=== PATIENT | female | born 1965 | race Caucasian/White ===

== ENCOUNTER 2016-09-22 08:25 | Inpatient (IN) | payer MEDICARE, MEDICAID ==
[2016-09-22] VITALS (8 sets, daily range): BP systolic 94–114; BP diastolic 59–72
[~2016-09-22] VITALS: Ht 177.8 cm; Wt 49.9 kg
--- NOTE | ~2016-09-22 | PR ---
[place], [place] PROGRESS NOTE [id number] UNIT #: [id number] ROOM: 502 DOCTOR: MARCIA MONTERO MD BIRTHDATE: [birth year] DOS: SUBJECTIVE: She has a bronchoscopy done yesterday with reduction of respiratory symptoms of coughing, shortness breath and wheezing. Denies symptoms of chest pain. Culture of the bronchial washing of the patient remains pending at this time. Denies symptoms of abdominal pain. OBJECTIVE: VITAL SIGNS: Normal temperature, respiratory rate 20, heart rate 83, blood pressure 124/80. Pulse oxygen saturation of the patient recorded as 92% on 3 L nasal cannula. HEENT: No acute change. NECK: Supple. CARDIOVASCULAR: S1, S2 audible. LUNGS: The patient was noted without any crackles. Mild expiratory wheezing improvement noted from yesterday. ABDOMEN: Soft, nontender. LABORATORY DATA: CBC today: WBC count 3.4, remaining CBC of patient essentially was noted as normal. Gram stain of the bronchial washing, moderate white blood cells, moderate epithelial cells, moderate gram-positive cocci in pairs and chains. IMPRESSION: 1. Severe acute tracheobronchitis. The patient with acute exacerbation of chronic obstructive pulmonary disease, acute tracheobronchitis with improvement occurred for this patient post-bronchoscopy patient. 2. History of common variable hypergammaglobulinemia. 3. Leukopenia noted, most likely medication induced or other etiologies. PLAN OF TREATMENT: Monitoring culture results. Continue the previous therapy, plan and management as in progress. Usual care. Supportive care. Other therapy, plan of care. Usual medical management. Continue to improve the protein calorie malnutrition with use of the nutritional supplements for the patient administration. [place], [place] PROGRESS NOTE NAME: SEA SCHUSTER UNIT #: [id number] ROOM: 502 DOCTOR: MARCIA MONTERO MD BIRTHDATE: [birth year] MARCIA JONAS MD CM:PNTRANS [id number] MARCIA MONTES MD 09/25/16 151 interface
--- NOTE | ~2016-09-22 | PROC NOTE ---
[place], [place] PROCEDURE NOTE [id number] UNIT #: [id number] ROOM: 502 DOCTOR: PRITESH MONTES MD,MARCIA BIRTHDATE: [birth year] DOS: 09/21/2016 PROCEDURE: Fiberoptic bronchoscopy. PREOPERATIVE DIAGNOSES: Persistent cough and wheezing. POSTOPERATIVE DIAGNOSES: Severe impaction of the mucus plug for the patient noted in endobronchial tree bilaterally with finding of acute tracheobronchitis for this patient as well. PROCEDURE DESCRIPTION: Informed consent was obtained from the patient. She was brought to the OR and placed in the supine position. Conscious sedation administered by the Anesthesia Department. After achieving appropriate sedation, airway introduced into the mouth. Bronchoscope advanced through the airway into laryngeal area. Epiglottis and vocal cords were seen. Bronchoscope advanced to the vocal cord and tracheal lumen. Tracheal lumen was noted with moderate thick mucus secretions and small purulent secretions suctioned out to the andrew level. Right upper, right lower, right middle, left upper, lingular and lower lobe bronchi were all examined. Moderate thick mucus impaction noted in endobronchial tree bilaterally and suctioned out with the help of normal saline wash. All the bronchial secretion was collected and sent for the cultures. Procedure was tolerated by the patient without any difficulty. Postoperative findings were discussed with the patient's family members after completion of the procedure. MARCIA JONAS MD CM:PROCNOTE:PROCEDURE NOTE [id number] MARCIA MONTES MD
--- NOTE | ~2016-09-22 | CON ---
[place], [place] REPORT OF CONSULTATION NAME: SEA SCHUSTER [facility] #: [id number] UNIT #: [id number] ROOM: 502 DOCTOR: MARCIA MONTERO MD BIRTHDATE: [birth year] DOS: 09/23/2016 PULMONARY CONSULTATION, EVALUATION AND MANAGEMENT CONSULTATION REQUESTED BY: Hospitalist services. REASON FOR CONSULTATION: For assessment of ongoing acute symptoms and exacerbation of COPD. HISTORY OF PRESENT ILLNESS: A 51-year-old white female who has been known to me with past history of severe centrilobular emphysema, common variable hypogammaglobulinemia presented to the hospital as she started having symptoms of nausea, vomiting with night sweats and fever. She was also noted symptoms of coughing, which has been noted worsened since Wednesday as well. The coughing has been noted moderate to severe without any sputum expectoration. The patient does have symptoms of shortness breath, which occurs with exertion with intermittent wheezing and tightness in the chest. There were no symptoms of chest pain. REVIEW OF SYSTEMS: CONSTITUTIONAL: She does complain of fatigue and tiredness, low grade fever. EYES: Denies any burning, redness, or tenderness. EARS, NOSE, THROAT: Sore throat, hoarseness, otalgia, postnasal drainage. CARDIOVASCULAR SYSTEM: Denies anginal pain, edema or pain of the lower extremities. GASTROINTESTINAL: Nausea, vomiting, which I noted on admission, on the has been resolved at this time. Denies symptoms of abdominal pain, hematemesis, melena, or hematochezia. GENITOURINARY: Denies dysuria, suprapubic pain, hematuria. MUSCULOSKELETAL: Denies acute joint pain, redness, or tenderness. SKIN: No lesions or rashes. CENTRAL NERVOUS SYSTEM: Denies dizziness, headache, diplopia. Remaining systems were reviewed with the patient, they were noted all negative. PAST MEDICAL HISTORY: 1. Noted with history of severe centrilobular emphysema for this patient with FEV1 was known as 90%-21% for this patient with the last testing done in May 2016. 2. History of common variable hypogammaglobulinemia on intravenous gammaglobulin supplements. 3. Gastroesophageal reflux. 4. Degenerative arthritis of the lower back. 5. Allergic rhinitis. 6. Poor peripheral venous access with MediPort in place. PAST SURGICAL HISTORY: 1. Tubal ligation. 2. D and C. 3. Lumbar laminectomy. [place], [place] REPORT OF CONSULTATION NAME: SEA SCHUSTER [facility] #: [id number] UNIT #: [id number] ROOM: [facility] DOCTOR: MARCIA MONTERO MD BIRTHDATE: [birth year] 4. Left rotator cuff repair recently for patient was performed. SOCIAL HISTORY: She is , has one daughter. Denies history of alcohol use or illicit drug use. Tobacco use noted at the age of [age] years old and stated that she has not been smoking any cigarettes and smoked about half a pack of cigarettes per day since 2011. FAMILY HISTORY: The patient was known with both parents have been of unknown ages. MEDICATIONS: Current administered medications noted use of Lovenox for DVT prophylaxis, Protonix, IV Solu-Medrol 60 mg b.i.d., DuoNeb every 4 hours, Levaquin, morphine sulfate and IV Levaquin. ALLERGIES: The drug allergy history the patient was reported as no known drug allergies. PHYSICAL EXAMINATION: GENERAL: A 51-year-old white female who has been noted excessive coughing at the time of this assessment. Height of 5 feet 9 inches, weight of 110 pounds without any distress. BMI 15.7. VITAL SIGNS: The temperature is noted at 100.6 degree Fahrenheit for the patient on admission, currently noted afebrile, respiratory rate of 18-20, heart rate of 88-76, blood pressure 96/62-122/62. Pulse oxygen saturation for the patient recorded on room air 86% with 2 liters nasal cannula 96% saturation. HEENT: Shows head was atraumatic. Eyes nonicterus. NECK: Supple. CARDIOVASCULAR SYSTEM: S1, S2 audible. LUNGS: The patient noted diffuse expiratory wheezing. The patient without any abnormal crackles. ABDOMEN: Soft, nontender and flat. EXTREMITIES: The patient was noted without any edema, clubbing or cyanosis. CENTRAL NERVOUS SYSTEM: Cranial nerves 2-12 intact. No focal deficit. MUSCULOSKELETAL: Noted without any acute deformities. SKIN: Showed no lesions or rashes. LABORATORY DATA: CBC of the patient on 09/22/2016 was noted with normal hemoglobin, hematocrit and platelet count mildly decreased 129,000. Lactic acid was normal. PT/PTT patient on admission 09/22/2016 was normal. CMP of the patient on 09/22/2016 was noted as normal. CMP for this patient except AST mildly elevated at 42. CPK-MB and troponin of the patient on yesterday and this morning total of 3 sets were normal. CBC of the patient on 09/23/2016 WBC count 3.2, hemoglobin and hematocrit was normal, platelet count was still noted decreased mild worsening with 117,000 today. Urine culture showed no bacterial growth from the patient from admission. The chest x-ray of the patient that was done shows MediPort in place in the right chest with lung was noted hyperinflated changes of COPD, emphysema without any acute pulmonary infiltration visible. IMPRESSION: [place], [place] REPORT OF CONSULTATION NAME: SEA SCHUSTER UNIT #: [id number] ROOM: [facility] DOCTOR: MARCIA MONTERO MD BIRTHDATE: [birth year] 1. The patient who has been currently admitted to the hospital noted progressive acute respiratory symptoms with the gastrointestinal tract for this patient later on noted with acute exacerbation of chronic obstructive pulmonary disease as well at the same time. 2. Severe nonproductive cough. The patient's inability to expectorate sputum with thick mucus production and impaction of the mucous plugs was expected. 3. History of common variable hypogammaglobulinemia known previously. 4. Mild thrombocytopenia, etiology unclear, needs to be closely monitored. 5. Mild elevation of AST was also noted for this patient as well. 6. Low BMI for this patient as well. 7. History of lower back pain as well. PLAN OF TREATMENT: The patient has been started symptomatic management, severe cough with Robitussin-AC to improve the cough. The bronchoscopy was assessed for the patient was planned to be done in the morning. The risks and benefits of procedure have been discussed. Monitor respiratory status of the patient at this time. I ordered prealbumin level will be done in the morning to assess the nutritional status. Other supportive therapy, plan of management. Usual care. Other supportive plan of management as well. Usual medical treatments. Further treatment changes will be done based on the progression of the illness. Thank you for allowing me to participate in the care of this patient. MARCIA JONAS MD CM:CONSTR:REPORT OF CONSULTATION 1243 09/24/16 0032 interface
--- NOTE | ~2016-09-22 | PR ---
[place], [place] PROGRESS NOTE [id number] UNIT #: [id number] ROOM: 502 DOCTOR: PRITESH MONTES MD,MARCIA BIRTHDATE: [birth year] DOS: 09/24/2016 PULMONARY PROGRESS NOTE SUBJECTIVE: The patient seen and examined on 09/24/2016. She is n.p.o. past midnight and bronchoscopy planned for today. The coughing for the patient was still noted at this time and not improving. She does have symptoms of chest tightness and wheezing. She was continued on corticosteroids. OBJECTIVE: VITAL SIGNS: Showed normal temperature, respiratory rate 22, heart rate of 53, blood pressure 111/81. The pulse oxygen saturation for the patient recorded as 92% on room air. HEENT: Examination shows head was atraumatic. Eyes nonicterus. NECK: Supple. CARDIOVASCULAR SYSTEM: S1, S2 audible. LUNGS: Showed persistent reduced breath sounds with expiratory wheezing, no crackles. ABDOMEN: Soft, nontender. LABORATORY DATA: Prealbumin level noted as 18. IMPRESSION: 1. The patient with ongoing acute severe exacerbation of chronic obstructive pulmonary disease, acute tracheobronchitis on antibiotics, bronchodilators, corticosteroids without much improvement, for bronchoscopy. 2. Moderate protein-calorie malnutritional status. PLAN OF TREATMENT: No changes in the plan and management at this time, proceed with the bronchoscopy. Any modification in treatment if necessary will be ordered after the bronchoscopy. Usual care. MARCIA JONAS MD CM:PNTRANS [id number] MARCIA MONTES MD 09/24/16 1340 interface
[~2016-09-22 08:25] MED LIST: ACCUNEB 0.1.25 MG/1 INH; ADVAIR 500/501 E1 INH; BACTRIM DS 8001 TA1 PO; CEPHALEXIN500 M1 PO; CIPRO PO; CIPRO500 MG PO; CIPROFLOXACIN500 MG PO; CORTIZONE; DALI500T PO; DOXYCYCLINE100 M3 PO; GABAPENTIN600 MG PO; GUAFENESIN400 MG PO; HYDROCODONE BIT1 T11 PO; IMMUNE GLOBULIN 100 MG/ML IV; IMMUNE GLOBULIN IJ; KEFLEX500 MG PO; KENALOG0.1% TP; LIDEX 0.05% GEL60 GM PO; METHADONE10 MG PO; NEURONTIN100 MG PO; NEURONTIN600 MG PO; OMEPRAZOLE20 MG PO; PERCOCET 325 MG1 TA7 PO; PERCOCET 650 MG1 TA1 PO; PREDNICOT20 MG PO; PREDNISONE5 MG; PREDNISONE5 MG PO; PRILOSEC20 M2 PO; PROAIR HFA0.09 MG/AC; PROAIR HFA0.09 MG/AC IH; ROBITUSSIN AC 10 MG/ PO; SINGULAIR10 MG PO; SPIRIVA 5 CAPS18 MCG INH; SPIRIVA18 MCG; SPIRIVA18 MCG PO; SYMBICORT1 AE1 IH; TRAMADOL HCL50 MG PO; ULTRAM50 MG PO; VENTOLIN H0.09 MG/AC INH; VIBRA-TAB100 M1 PO; VISTARIL25 MG PO; Vicodin 5/500 505 MG PO; ZOFRAN ODT4 MG SL
[2016-09-22 09:16] LABS: BASO % 0.2 % (0.0-1.0); HEMATOCRIT 45.7 % (37.0-47.0); LYMPH # 0.6 10*3/uL (1.3-4.4); LYMPH % 11.8 % (27.0-41.0); MEAN CELL VOLUME 89.8 fl (81.0-99.0); MEAN CORPUSCULAR HGB 29.5 pg (27.0-31.0); MEAN CORPUSCULAR HGB CONC 32.8 g/dl (33.0-37.0); MEAN PLATELET VOLUME 10.7 fl (9.6-12.3); MONO # 0.5 10*3/uL (0.1-1.0); MONO % 8.6 % (3.0-9.0); NEUT # 4.2 10*3/uL (2.3-7.9); NEUT % 79.2 % (47.0-73.0); PLATELET COUNT AUTOMATED 129 10*3/uL (130-400); RED BLOOD COUNT 5.09 10*6/uL (4.10-5.10); RED CELL DISTRI WIDTH 14.1 % (0-14.5); WHITE BLOOD COUNT 5.3 10*3/uL (4.8-10.8)
[2016-09-22 09:32] LABS: ALBUMIN 3.8 gm/dl (3.1-4.5); ALKALINE PHOSPHATASE 76 U/L (45-117); BILIRUBIN, TOTAL 0.2 mg/dl (0.2-1.0); BUN 11 mg/dl (7-24); C-REACTIVE PROTEIN 0.73 MG/DL (0-0.3); CARBON DIOXIDE 26 mmol/L (21-32); CHLORIDE 101 mmol/L (98-107); CKMB 1.3 ng/ml (0.5-3.6); CPK 145 U/L (26-192); EST GLOM FILT AFRICAN AMERICAN > 60 ml/min; GLUCOSE 102 mg/dL (65-99); POTASSIUM 4.4 mmol/L (3.5-5.1); SGOT/AST 42 IU/L (3-35); SGPT/ALT 40 U/L (12-78); SODIUM 139 mmol/L (136-145); TOTAL PROTEIN 6.9 gm/dL (6.4-8.2)
[2016-09-22 09:33] LABS: TROPONIN I < 0.015 ng/ml (<0.045)
[2016-09-22 09:36] LABS: BILIRUBIN 1+ (NEGATIVE); BLOOD 1+ (NEGATIVE); CLARITY SL CLOUDY (CLEAR); COLOR YELLOW (YELLOW); GLUCOSE NEGATIVE (NEGATIVE); KETONE NEGATIVE (NEGATIVE); LEUKO ESTERASE 1+ (NEGATIVE); NITRITE NEGATIVE (NEGATIVE); PH 5.5 (5.0-9.0); PROTEIN 2+ (NEGATIVE); SPECIFIC GRAVITY >= 1.030 (1.005-1.030)
[2016-09-22 09:44] LABS: BACTERIA TRACE
[2016-09-22 09:45] LABS: URINE REFLEX COMMENT YES (NO)
[2016-09-22 18:04] LABS: CPK 138 U/L (26-192)
[2016-09-22 18:09] LABS: CKMB 1.5 ng/ml (0.5-3.6)
[2016-09-22 18:14] LABS: TROPONIN I < 0.015 ng/ml (<0.045)
[2016-09-23] VITALS: BP 97/62
[2016-09-23 00:29] LABS: CKMB 1.6 ng/ml (0.5-3.6); CPK 114 U/L (26-192); TROPONIN I < 0.015 ng/ml (<0.045)
[2016-09-23 06:05] LABS: CKMB 1.9 ng/ml (0.5-3.6); CPK 100 U/L (26-192)
[2016-09-23 06:11] LABS: TROPONIN I < 0.015 ng/ml (<0.045)
[2016-09-23 06:30] LABS: BUN 11 mg/dl (7-24); CARBON DIOXIDE 25 mmol/L (21-32); CHLORIDE 110 mmol/L (98-107); CHOLESTEROL 113 mg/dL (<200); EST GLOM FILT AFRICAN AMERICAN > 60 ml/min; GLUCOSE 93 mg/dL (65-99); MAGNESIUM 1.9 mg/dL (1.5-2.1); PHOSPHOROUS 3.5 mg/dL (2.5-4.9); SODIUM 143 mmol/L (136-145); TRIGLYCERIDES 105 mg/dl (<150); VLDL CHOLESTEROL 21 mg/dL (6-40)
[2016-09-23 06:32] LABS: HEMOGLOBIN A1c 5.5 % (4.8-5.6)
[2016-09-23 06:41] LABS: FREE T4 0.79 ng/dl (0.76-1.46); HDL CHOLESTEROL 43 mg/dl (40-60); LDL CHOLESTEROL 49 mg/dL (9-159); THYROID STIM HORMONE (HS) 0.652 uIU/ml (0.358-4.75)
[2016-09-23 06:58] LABS: BASO % 0.3 % (0.0-1.0); LYMPH # 1.1 10*3/uL (1.3-4.4); LYMPH % 33.9 % (27.0-41.0); MEAN CELL VOLUME 90.3 fl (81.0-99.0); MEAN CORPUSCULAR HGB 29.4 pg (27.0-31.0); MEAN CORPUSCULAR HGB CONC 32.5 g/dl (33.0-37.0); MEAN PLATELET VOLUME 10.9 fl (9.6-12.3); MONO # 0.3 10*3/uL (0.1-1.0); MONO % 10.1 % (3.0-9.0); NEUT # 1.8 10*3/uL (2.3-7.9); NEUT % 55.4 % (47.0-73.0); PLATELET COUNT AUTOMATED 117 10*3/uL (130-400); RED BLOOD COUNT 4.22 10*6/uL (4.10-5.10); RED CELL DISTRI WIDTH 14.1 % (0-14.5); WHITE BLOOD COUNT 3.2 10*3/uL (4.8-10.8)
[2016-09-23 07:01] LABS: HEMATOCRIT 38.1 % (37.0-47.0); HEMOGLOBIN 12.4 g/dl (12.0-16.0)
[2016-09-23 07:15] LABS: VITAMIN D, 25-HYDROXY 9.1 ng/mL (30-100)
[2016-09-23 07:16] LABS: FOLIC ACID 11.82 ng/mL (>5.38)
[2016-09-23 08:00] VITALS: BP 122/82
[2016-09-23 12:00] VITALS: BP 118/82
[2016-09-23 16:00] VITALS: BP 114/79
[2016-09-23 20:00] VITALS: BP 117/80
[2016-09-24] VITALS (10 sets, daily range): BP systolic 109–141; BP diastolic 65–94
[2016-09-25] VITALS: BP 112/65
[2016-09-25 06:32] LABS: HEMATOCRIT 38.7 % (37.0-47.0); HEMOGLOBIN 12.5 g/dl (12.0-16.0); MEAN CELL VOLUME 88.4 fl (81.0-99.0); MEAN CORPUSCULAR HGB 28.5 pg (27.0-31.0); MEAN CORPUSCULAR HGB CONC 32.3 g/dl (33.0-37.0); MEAN PLATELET VOLUME 11.2 fl (9.6-12.3); PLATELET COUNT AUTOMATED 136 10*3/uL (130-400); RED BLOOD COUNT 4.38 10*6/uL (4.10-5.10); RED CELL DISTRI WIDTH 14.2 % (0-14.5); WHITE BLOOD COUNT 2.4 10*3/uL (4.8-10.8)
[2016-09-25 07:11] LABS: LYMPHOCYTE # 0.4 10*3/uL (1.3-4.4); NEUTROPHIL # 1.9 10*3/uL (2.3-7.9); NEUTROPHILS 81 % (47-73); TOTAL CELLS COUNTED 100 #CELLS
[2016-09-25 07:12] LABS: PLATELET SUFFICIENCY NORMAL (NORMAL)
[2016-09-25 08:00] VITALS: BP 124/80
[2016-09-25 12:00] VITALS: BP 127/84
[2016-09-25] MEDS ORDERED: VITAMIN D5000 I3 PO (13:39)
[2016-09-25] MEDS ORDERED: B12,B-12,B 12500 MC1 PO (13:39)
[2016-09-25] MEDS ORDERED: LEVOFLOXACIN500 MG PO (14:01)
[2016-09-25] MEDS ORDERED: PREDNISONE10 MG PO (14:01)
[2016-09-25 14:07] LABS: ACID FAST SPEC PROCESSING Concentration (.)
== END 2016-09-25 14:20 | disposition home or self-care (01) | DRG 871 ==
LOC: ED 08:25 → EDHOLD 10:43 → 5E 10:43
PROVIDERS: Emergency Medicine; Internal Medicine; Internal Medicine Critical Care Medicine
PROC: 0BC98ZZ Extirpation of Matter from Lingula Bronchus, Via Natural or Artificial Opening Endoscopic (ICD-10-PCS; principal; 2016-09-24)
PROC: 0BC48ZZ Extirpation of Matter from Right Upper Lobe Bronchus, Via Natural or Artificial Opening Endoscopic (ICD-10-PCS; principal; 2016-09-24)
PROC: 0BC58ZZ Extirpation of Matter from Right Middle Lobe Bronchus, Via Natural or Artificial Opening Endoscopic (ICD-10-PCS; principal; 2016-09-24)
PROC: 0BC68ZZ Extirpation of Matter from Right Lower Lobe Bronchus, Via Natural or Artificial Opening Endoscopic (ICD-10-PCS; principal; 2016-09-24)
DX: A41.9 Sepsis, unspecified organism (principal); J18.9 Pneumonia, unspecified organism; J96.01 Acute respiratory failure with hypoxia; D69.6 Thrombocytopenia, unspecified; E44.0 Moderate protein-calorie malnutrition; J44.0 Chronic obstructive pulmonary disease with (acute) lower respiratory infection; J44.1 Chronic obstructive pulmonary disease with (acute) exacerbation; Z68.1 Body mass index [BMI] 19.9 or less, adult; F17.210 Nicotine dependence, cigarettes, uncomplicated; D72.819 Decreased white blood cell count, unspecified; E55.9 Vitamin D deficiency, unspecified; E53.8 Deficiency of other specified B group vitamins; K21.9 Gastro-esophageal reflux disease without esophagitis; J30.9 Allergic rhinitis, unspecified; Z90.710 Acquired absence of both cervix and uterus; Z82.49 Family history of ischemic heart disease and other diseases of the circulatory system; Z79.1 Long term (current) use of non-steroidal anti-inflammatories (NSAID); Z79.899 Other long term (current) drug therapy; Z98.51 Tubal ligation status; J20.9 Acute bronchitis, unspecified

== ENCOUNTER → 2016-11-17 | Outpatient (CLI) | payer MEDICARE, MEDICAID ==
[~2016-11-17] MED LIST changes: +B12,B-12,B 12500 MC1 PO; +LEVOFLOXACIN500 MG PO; +PREDNISONE10 MG PO; +VITAMIN D5000 I3 PO
== END | disposition home or self-care (01) ==
LOC: US 09:43
DX: R10.33 Periumbilical pain (principal); R63.4 Abnormal weight loss; Z98.890 Other specified postprocedural states

== ENCOUNTER → 2017-01-29 | Day surgery (SDC) | payer MEDICARE, MEDICAID ==
[~2017-01-29] VITALS: Ht 177.8 cm; Wt 49.9 kg
--- NOTE | ~2017-01-29 | O ---
[place], [place] OPERATIVE NOTE NAME: SEA SCHUSTER UNIT #: [id number] ROOM: DOCTOR: JOSEFA HICKMAN MD BIRTHDATE: [birth year] DOS: HISTORY OF PRESENT ILLNESS: The patient is a 51-year-old who presented with solid food dysphagia which is mostly limited to upper esophagus. ALLERGIES: To no known medication. FAMILY HISTORY: Noncontributory. PAST SURGICAL HISTORY: Back, elbow, neck, shoulder and hysterectomy. PAST MEDICAL HISTORY: Unremarkable. SOCIAL HISTORY: Smoker and social alcohol consumer. PROCEDURE: Today's procedure part of investigation is panendoscopy plus biopsy plus esophageal dilation by balloon. PREMEDICATION: Versed and Diprivan. SCOPE: Olympus forward-viewing gastroscope Q10 video. REPORT: After putting the patient in the left lateral position and after application of lubricant to the scope, the scope was introduced. Thereafter, under direct visualization, I advanced through the length of esophagus without difficulty. Upper esophageal stricture obviously was identified. It was difficult to negotiate the scope into the patient and to intubate her for endoscopic purpose. However, this was achieved and gastric pouch was entered after passing through a moderate sized hiatal hernia, gastritis seen. Antrum was biopsied. Duodenal bulb, second and third part was within normal limits. Balloon size 20 was introduced into gastric pouch, inflated to size 20 and orally gradually and meticulously extracted. The balloon is resisted in the upper esophagus, which is segment of the stricture. This, however, overcame and the patient extubated, tolerated procedure well. Afterwards, the patient was re-intubated with the scope in the esophagus and the result of mucosal fracture in the upper esophagus documented, minimal blood of less than 3 mL washed away with ice water. There was no active bleeding. The patient extubated, tolerated procedure well. IMPRESSION: Upper esophageal stricture, status post balloon dilation to size 20, hiatal hernia, gastritis. PLAN AND DISCUSSION: Omeprazole 20 mg 1 a day for 1 month. The patient advised to abstain from smoking, alcohol, aspirin and aspirin products and arthritis medicines and clinical reassessment. [place], [place] OPERATIVE NOTE NAME: SEA SCHUSTER UNIT #: [id number] ROOM: DOCTOR: JOSEFA HICKMAN MD BIRTHDATE: [birth year] JOSEFA HICKMAN MD CM:OPRECORD:OPERATIVE NOTE 1430 [id number] ELBA HICKMAN MD 01/29/17 1607 interface
[2017-01-29 12:15] VITALS: BP 133/85
[2017-01-29 14:20] VITALS: BP 120/90
[2017-01-29 14:35] VITALS: BP 115/92
[2017-01-29 14:50] VITALS: BP 121/91
== END | disposition home or self-care (01) ==
LOC: SDC 01-27 08:00
DX: K22.2 Esophageal obstruction (principal); K29.50 Unspecified chronic gastritis without bleeding; K44.9 Diaphragmatic hernia without obstruction or gangrene; F17.210 Nicotine dependence, cigarettes, uncomplicated; K21.9 Gastro-esophageal reflux disease without esophagitis; J44.9 Chronic obstructive pulmonary disease, unspecified; D80.1 Nonfamilial hypogammaglobulinemia; M19.90 Unspecified osteoarthritis, unspecified site; Z98.51 Tubal ligation status; Z82.49 Family history of ischemic heart disease and other diseases of the circulatory system; Z83.3 Family history of diabetes mellitus; Z90.710 Acquired absence of both cervix and uterus; Z98.890 Other specified postprocedural states; Z82.5 Family history of asthma and other chronic lower respiratory diseases

== ENCOUNTER → 2017-03-16 | Outpatient (CLI) | payer MEDICARE, MEDICAID ==
[2017-03-18 00:04] LABS: IGG SUBCLASS 1 281 mg/dL (248-810); IGG SUBCLASS 2 173 mg/dL (130-555); IGG SUBCLASS 3 96 mg/dL (15-102); IGG SUBCLASS 4 <1 mg/dL (2-96)
== END | disposition home or self-care (01) ==
LOC: LAB 12:24
PROVIDERS: Internal Medicine Critical Care Medicine
DX: J84.9 Interstitial pulmonary disease, unspecified (principal)

== ENCOUNTER → 2017-03-26 | Outpatient (CLI) | payer MEDICARE, MEDICAID ==
[2017-03-26 11:45] LABS: BUN 6 mg/dl (7-24)
== END | disposition home or self-care (01) ==
LOC: LAB 11:16
PROVIDERS: Internal Medicine Gastroenterology
DX: J44.9 Chronic obstructive pulmonary disease, unspecified (principal); R10.9 Unspecified abdominal pain

== ENCOUNTER → 2017-03-30 | Outpatient (CLI) | payer MEDICARE, MEDICAID | END | disposition home or self-care (01) | LOC: CT 00:58 | DX: K76.0 Fatty (change of) liver, not elsewhere classified (principal) ==

== ENCOUNTER → 2017-03-31 | Day surgery (SDC) | payer MEDICARE, MEDICAID ==
[~2017-03-31] VITALS: Ht 177.8 cm; Wt 46.7 kg
--- NOTE | ~2017-03-31 | PROC NOTE ---
[place], [place] PROCEDURE NOTE NAME: SEA SCHUSTER UNIT #: [id number] ROOM: DOCTOR: PRITESH MONTES MD,MARCIA BIRTHDATE: [birth year] DOS: 03/31/2017 BRONCHOSCOPY PREOPERATIVE DIAGNOSIS: Severe nonresolving cough. POSTOPERATIVE DIAGNOSES: Severe nonresolving cough with mucus impaction and tracheobronchitis. PROCEDURE DESCRIPTION: Informed consent obtained. The patient brought to the OR and placed in supine position. Conscious sedation administered by the Anesthesia Department. After achieving appropriate sedation, airway introduced into the mouth. Bronchoscope advanced into the airway into laryngeal area. Epiglottis and vocal cords were seen clearly. Vocal cords were moving symmetric ____ noted yellowish in color. The bronchoscope advanced to the vocal cord and tracheal lumen shows [id number] amount of thick mucoid secretions, suctioned out to the andrew level. The patient noted with [id number] impaction of the mucus, quite thick, in right upper, right middle, right lower, left upper, lingula, and lower lobe bronchi. All secretions suctioned out with the help of normal saline wash and sent for culture. Procedure well tolerated by the patient without any difficulty. Postoperative findings were discussed with the patient, I explained in detail. No change in treatment will be necessary. MARCIA JONAS MD CM:PROCNOTE:PROCEDURE NOTE [id number] MARCIA MONTES MD
[2017-03-31 08:20] VITALS: BP 128/87
[2017-03-31 09:15] VITALS: BP 107/83
[2017-03-31 09:30] VITALS: BP 118/77
[2017-03-31 09:45] VITALS: BP 119/66
[2017-04-01 16:11] LABS: ACID FAST SMEAR Negative (.); ACID FAST SPEC PROCESSING Concentration (.)
== END | disposition home or self-care (01) ==
LOC: SDC 03-30 08:45
PROVIDERS: Internal Medicine Critical Care Medicine
DX: J40 Bronchitis, not specified as acute or chronic (principal); J44.9 Chronic obstructive pulmonary disease, unspecified; K21.9 Gastro-esophageal reflux disease without esophagitis; M19.90 Unspecified osteoarthritis, unspecified site; Z98.890 Other specified postprocedural states; Z87.891 Personal history of nicotine dependence; Z79.899 Other long term (current) drug therapy; Z98.51 Tubal ligation status; Z90.710 Acquired absence of both cervix and uterus

== ENCOUNTER 2017-04-19 11:29 | Emergency (ER) | payer MEDICARE, MEDICAID ==
[~2017-04-19] VITALS: Ht 175.2 cm; Wt 46.7 kg
[~2017-04-19 11:29] MED LIST changes: +AMOXICILLIN500 M2 PO
[2017-04-19] MEDS ORDERED: NORCO 5-325 TA1 EACH PO (14:16)
== END 2017-04-19 14:17 | disposition home or self-care (01) ==
LOC: ED 11:29
DX: S22.42XA Multiple fractures of ribs, left side, initial encounter for closed fracture (principal); S90.32XA Contusion of left foot, initial encounter; S50.312A Abrasion of left elbow, initial encounter; F17.200 Nicotine dependence, unspecified, uncomplicated; Z98.890 Other specified postprocedural states; Z90.710 Acquired absence of both cervix and uterus; Z98.51 Tubal ligation status; Z79.899 Other long term (current) drug therapy; W17.2XXA Fall into hole, initial encounter; Y93.89 Activity, other specified; Y92.89 Other specified places as the place of occurrence of the external cause; Y99.9 Unspecified external cause status

== ENCOUNTER → 2017-05-04 | Outpatient (CLI) | payer MEDICARE, MEDICAID ==
[~2017-05-04] MED LIST changes: +NORCO 5-325 TA1 EACH PO
== END | disposition home or self-care (01) ==
LOC: MAMMO 15:53
DX: Z12.31 Encounter for screening mammogram for malignant neoplasm of breast (principal)

== ENCOUNTER 2017-12-15 19:08 | Inpatient (IN) | payer MEDICARE, MEDICAID ==
[~2017-12-15] VITALS: Ht 175.2 cm; Wt 46.8 kg
--- NOTE | ~2017-12-15 | PR ---
[place], [place] PROGRESS NOTE NAME: SEA SCHUSTER [facility] #: [id number] UNIT #: [id number] ROOM: 415 DOCTOR: PRITESH MONTES MD,MARCIA BIRTHDATE: [birth year] DOS: 12/17/2017 SUBJECTIVE: The patient noted comfortable at this time, resting in the bed, stated that she has been ordered the CT scan of the chest to be done today. The coughing has been noted decreased for the patient after the bronchoscopy. The resolution noted incomplete. The patient has symptoms of hemoptysis. The wheezing and shortness breath was also noted somewhat decreased. She denies symptoms of nausea, vomiting, diarrhea, abdominal pain. Denies symptoms of hematemesis, melena or dysphagia. Denies symptoms of dizziness, headache, diplopia. Remaining systems were reviewed. They were noted all negative. OBJECTIVE: VITAL SIGNS: Normal temperature, respiratory rate 20, heart rate 76, blood pressure 120/62. The pulse oxygen saturation noted on room air 97% saturation. HEENT: Head was atraumatic. Eyes nonicterus. NECK: Supple. Oral mucosa moist. CARDIOVASCULAR: S1, S2 audible without any added sounds. LUNGS: Noted with moderate reduction in breath sounds with mild to moderate expiratory wheezing, decreased at bases. ABDOMEN: Flat, soft, nontender. Bowel sounds present. EXTREMITIES: Without acute edema. MUSCULOSKELETAL: Without any acute deformities. SKIN: No abnormal lesions or rashes. LABORATORY DATA: The patient's blood culture 12/15/2017 showed no bacterial growth. The Gram stain of the bronchial washing of the patient of 12/16/2017, many white blood cells without any organisms seen. Culture of the bronchial washing noted light growth of gram-negative bacilli. Further identification and sensitivity ____ was pending at this time. Blood culture of the patient was noted without any bacterial growth on 12/15/2017. CBC of this morning: WBC count normal. Remaining CBC normal. CMP this morning, BUN normal, creatinine was normal, glucose 129. IMPRESSION: 1. The patient who has been noted with severe acute bronchitis with gram-negative species of the patient at this time, pending identification and sensitivities. 2. History of common variable hypogammaglobulinemia, failed outpatient treatment. 3. Acute exacerbation of chronic obstructive pulmonary disease. CT scan of the chest was completed for the patient, later on, that was reviewed for the patient noted without any abnormalities except known chronic emphysema changes. There were no abnormal pulmonary nodules. PLAN OF MANAGEMENT: Maximize the current medical management. Continue corticosteroids current dose, bronchodilators, oxygen supplementation and the antibiotics. The decision about discharge for the patient to be made for tomorrow after the culture results will be clearly known since the patient was noted with not a good response to the oral antibiotics, might require intravenous antibiotic therapy. [place], [place] PROGRESS NOTE NAME: LANDENSEA Micah UNIT #: [id number] ROOM: [facility] DOCTOR: MARCIA MONTERO MD BIRTHDATE: [birth year] MARCIA JONAS MD CM:PNTRANS [phone] MARCIA MONTES MD 12/17/17 1959 interface
--- NOTE | ~2017-12-15 | EKG ---
[place], [place] ELECTROCARDIOGRAM REPORT NAME: SEA SCHUSTER UNIT #: [id number] ROOM: 415 DOCTOR: PRITESH MONTES MD,MARCIA BIRTHDATE: [birth year] DOS: 12/15/2017 TIME: 7:44 p.m. Normal sinus rhythm noted, heart rate 86 beats per minute. MARCIA JONAS MD CM:EKGRPT:ELECTROCARDIOGRAM REPORT [id number] MARCIA MONTES MD
--- NOTE | ~2017-12-15 | PROC NOTE ---
[place], [place] PROCEDURE NOTE NAME: SEA SCHUSTER UNIT #: [id number] ROOM: 415 DOCTOR: PRITESH MONTES MD,MARCIA BIRTHDATE: [birth year] DOS: 12/16/2017 PREOPERATIVE DIAGNOSES: Persistent coughing and wheezing, now resolved with the treatment. POSTOPERATIVE DIAGNOSES: Persistent coughing and wheezing, now resolved with the treatment. DESCRIPTION OF PROCEDURE: Informed consent obtained for the patient. The patient brought to the OR and placed in supine position. Conscious sedation administered by the Anesthesia Department. After achieving proper sedation, airway introduced into the mouth. Bronchoscope advanced into the airway into laryngeal area. Epiglottis and vocal cords were seen. Bronchoscope advanced to vocal cord and tracheal lumen. Tracheal lumen for the patient was identified. The patient noted small amount of mucus secretions, suctioned out to the andrew level. Endobronchial tree was examined on the right and the left side systematically including right upper, right middle, right lower, left upper, lingular lower lobes. Small amount of mucus impaction noted in endobronchial tree for this patient. There were no large major mucus plugs were noted. Secretions suctioned out and cleared out with normal saline wash, sent for cultures. Procedure well tolerated by the patient without any complications. Postoperative findings were discussed with the patient's in the recovery room. No immediate change in treatment will be necessary. All the previous treatment will be resumed postprocedure with addition of changes in the treatment to be made for the patient after the culture results. MARCIA JONAS MD CM:PROCNOTE:PROCEDURE NOTE 1159 [id number] MARCIA MONTES MD
--- NOTE | ~2017-12-15 | CON ---
[place], [place] REPORT OF CONSULTATION NAME: SEA SCHUSTER [facility] #: [id number] UNIT #: [id number] ROOM: 415 DOCTOR: PRITESH MONTES MDMARCIA BIRTHDATE: [birth year] DOS: 12/16/2017 REQUESTING PHYSICIAN: Luis Burgess MD REASON FOR CONSULTATION: Assess the patient for persistent symptoms of coughing, wheezing with failed outpatient treatment for exacerbation of COPD. HISTORY OF PRESENT ILLNESS: This is a 52-year-old white female patient, very well familiar to me from the past. She has been known with history of common variable hypergammaglobulinemia as well as severe COPD problem. The patient has been noted ongoing acute respiratory symptom for the past several days. The symptoms have been noted gradually worsened in the last 3-4 days. She has been treated with oral antibiotics and tapering prednisone for this patient. She has completed the medication and failed to show improvement in symptoms. She has been noted excessive chest congestion, inability to expectorate sputum. The patient was also noted symptoms of wheezing. The shortness of breath occurs with exertion. The patient was admitted to the hospital as she contacted my office for nonresolution of symptoms for further management of current problem. She was planned for bronchoscopy to be done because of the failed outpatient treatment with previous use of multiple antibiotics. REVIEW OF SYSTEMS: CONSTITUTIONAL: Fatigue and tiredness reported and symptom of fever or chills. EYES: Denies any burning, redness, or tenderness. EARS, NOSE, THROAT SYMPTOMS: Denies sore throat, hoarseness, otalgia, postnasal drainage or epistaxis or sinus pain. GASTROINTESTINAL: Dysphagia, nausea, vomiting, diarrhea, abdominal pain, hematemesis, melena, or abnormal weight loss. CARDIOVASCULAR SYSTEM: Denies anginal pain, edema of the lower extremities or palpitation history. GENITOURINARY SYMPTOMS: No dysuria, suprapubic pain, hematuria. MUSCULOSKELETAL: Denies acute joint pain, redness, or tenderness. SKIN: Denies any lesions or rashes. CENTRAL NERVOUS SYSTEM: No dizziness, headache, or diplopia. Remaining systems were reviewed. They were noted all negative. PAST MEDICAL HISTORY: 1. End-stage chronic obstructive pulmonary disease. 2. Chronic hypoxic respiratory failure. 3. Common variable hypogammaglobulinemia. 4. Allergic rhinitis. 5. Gastroesophageal reflux disease. 6. Vitamin D deficiency. PAST SURGICAL HISTORY: 1. Lumbar laminectomy. 2. Basal cell cancer excision from the chin. 3. D and C. 4. Surgery of the left elbow. [place], [place] REPORT OF CONSULTATION NAME: SEA SCHUSTER UNIT #: [id number] ROOM: [facility] DOCTOR: PRITESH MONTES MDMARCIA BIRTHDATE: [birth year] 5. Cervical fusion. 6. Left rotator cuff surgery. 7. Complete hysterectomy. 8. Tubal ligation. 9. Therapeutic bronchoscopy, which was done previously. SOCIAL HISTORY: The patient is and lives at home. She has been known with history of tobacco use of pack of cigarettes per day. There was no history of illicit drug use. FAMILY HISTORY: The patient's father at 54 years of complication of mesothelioma. Mother at the age of 62 years of complication of congestive heart failure. CURRENT MEDICATIONS: Administered for the patient on this hospitalization was seen as use of Daliresp, Solu-Medrol 40 mg q.8 hours, nicotine replacement patches, Mucinex, Dulera, calcium, gabapentin, Zithromax and Rocephin. ALLERGIES: No known drug allergies. PHYSICAL EXAMINATION: GENERAL: A 52-year-old female who has noted with excessive coughing intermittently during examination and history. Height of 5 feet 9 inches, weight of 103 pounds, BMI 15.2. VITAL SIGNS: Shows normal temperature, respiratory rate 18-20, heart rate of 92-74, blood pressure 112/64-118/61. Pulse oxygen saturation of the patient recorded on room air 94% saturation. HEENT: Head was atraumatic. Eyes nonicterus. NECK: Supple. CARDIOVASCULAR: S1, S2 audible. LUNGS: Showed diffuse expiratory wheezing, no crackles. ABDOMEN: Soft, nontender and flat. EXTREMITIES: The patient noted without acute edema. MUSCULOSKELETAL: Without any acute deformities. CENTRAL NERVOUS SYSTEM: Cranial nerves 2-12 intact. SKIN: There are skin lesions or rashes. LABORATORY DATA: The BMP that was done this morning showed normal BUN and creatinine. CBC at this morning essentially noted as normal CBC. Chest x-ray of the patient, which was done in the Emergency Room yesterday was reviewed, changes of COPD without any acute abnormalities. Arterial blood gas done yesterday, pH of 7.39, pCO2 of 40, pO2 57.9. IMPRESSION: 1. The patient has been noted with an acute exacerbation of COPD with failed outpatient treatment. 2. History of allergic rhinitis and common variable hypogammaglobulinemia. 3. The patient's chronic hypoxic respiratory failure, use of oxygen supplementation with exertion 2 liters at night. 4. History of chronic nicotine dependence as well. [place], [place] REPORT OF CONSULTATION NAME: SEA SCHUSTER UNIT #: [id number] ROOM: [facility] DOCTOR: PRITESH MONTES MD,MARCIA BIRTHDATE: [birth year] PLAN OF MANAGEMENT: Continue current antibiotics, bronchodilators, oxygen supplementation, and corticosteroids. She was made n.p.o. past last night for therapeutic bronchoscopy planned to be done today. Proceed with bronchoscopy and additional change in the treatment as necessary will be done afterwards. All other supportive plan of management and care. Thanks for allowing me to participate in the care of this patient. MARCIA JONAS MD CM:CONSTR:REPORT OF CONSULTATION 1157 12/16/17 1554 interface
[2017-12-15 19:09] VITALS: BP 100/54
[2017-12-15 20:07] LABS: BASO # 0.1 10*3/uL (0.0-0.1); BASO % 1.1 % (0.0-1.0); EOS # 0.1 10*3/uL (0.0-0.4); EOS % 1.8 % (1.0-4.0); HEMATOCRIT 44.4 % (37.0-47.0); HEMOGLOBIN 14.4 g/dl (12.0-16.0); LYMPH # 2.6 10*3/uL (1.3-4.4); LYMPH % 34.7 % (27.0-41.0); MEAN CELL VOLUME 89.3 fl (81.0-99.0); MEAN CORPUSCULAR HGB CONC 32.4 g/dl (33.0-37.0); MEAN PLATELET VOLUME 10.3 fl (9.6-12.3); MONO # 0.5 10*3/uL (0.1-1.0); MONO % 6.4 % (3.0-9.0); NEUT # 4.1 10*3/uL (2.3-7.9); NEUT % 55.9 % (47.0-73.0); PLATELET COUNT AUTOMATED 194 10*3/uL (130-400); RED BLOOD COUNT 4.97 10*6/uL (4.10-5.10); RED CELL DISTRI WIDTH 13.5 % (0-14.5); WHITE BLOOD COUNT 7.4 10*3/uL (4.8-10.8)
[2017-12-15 20:16] LABS: ACT PARTIAL THROMBO TIME 47.7 SECONDS (20.8-31.5)
[2017-12-15 20:25] LABS: ALBUMIN 3.6 gm/dl (3.1-4.5); ALKALINE PHOSPHATASE 87 U/L (45-117); BUN 6 mg/dl (7-24); CHLORIDE 108 mmol/L (98-107); CREATININE 0.71 mg/dL (0.55-1.02); POTASSIUM 4.1 mmol/L (3.5-5.1); SGOT/AST 12 IU/L (3-35); SGPT/ALT 19 U/L (12-78); SODIUM 141 mmol/L (136-145); TOTAL PROTEIN 6.7 gm/dL (6.4-8.2)
[2017-12-15 20:26] LABS: TROPONIN I < 0.015 ng/ml (<0.045)
[2017-12-15 20:48] LABS: ABG BASE EXCESS -0.1 mmol/L (-2.0-2.0); ABG HCO3 24.2 mmol/l (22-26); ABG O2 SATURATION 91.3 % (95-97); ARTERIAL BLOOD GAS PCO2 40.2 mmHg (35-45); ARTERIAL BLOOD GAS PH 7.396 (7.35-7.45); ARTERIAL BLOOD GAS PO2 57.9 mmHg (80-90)
[2017-12-15 21:25] VITALS: BP 109/71
[2017-12-15 21:31] VITALS: BP 106/62
[2017-12-15] MEDS ORDERED: PERCOCET 10-321 EACH PO (21:41)
[2017-12-16] VITALS (10 sets, daily range): BP systolic 107–138; BP diastolic 54–82
[2017-12-16 06:14] LABS: BASO # 0.1 10*3/uL (0.0-0.1); BASO % 1.2 % (0.0-1.0); EOS # 0.1 10*3/uL (0.0-0.4); EOS % 1.9 % (1.0-4.0); HEMATOCRIT 40.3 % (37.0-47.0); LYMPH # 2.2 10*3/uL (1.3-4.4); MEAN CELL VOLUME 89.6 fl (81.0-99.0); MEAN CORPUSCULAR HGB 28.9 pg (27.0-31.0); MEAN CORPUSCULAR HGB CONC 32.3 g/dl (33.0-37.0); MEAN PLATELET VOLUME 10.5 fl (9.6-12.3); MONO # 0.4 10*3/uL (0.1-1.0); MONO % 7.8 % (3.0-9.0); NEUT # 2.8 10*3/uL (2.3-7.9); NEUT % 49.9 % (47.0-73.0); PLATELET COUNT AUTOMATED 159 10*3/uL (130-400); RED CELL DISTRI WIDTH 13.5 % (0-14.5); WHITE BLOOD COUNT 5.7 10*3/uL (4.8-10.8)
[2017-12-16 06:33] LABS: BUN 5 mg/dl (7-24); CHLORIDE 112 mmol/L (98-107); CHOLESTEROL 144 mg/dL (<200); CREATININE 0.66 mg/dL (0.55-1.02); HDL CHOLESTEROL 53 mg/dl (40-60); LDL CHOLESTEROL 69 mg/dL (9-159); PHOSPHOROUS 3.7 mg/dL (2.5-4.9); POTASSIUM 3.9 mmol/L (3.5-5.1); SODIUM 142 mmol/L (136-145); TRIGLYCERIDES 109 mg/dl (<150); VLDL CHOLESTEROL 22 mg/dL (6-40)
[2017-12-16 07:23] LABS: BILIRUBIN NEGATIVE (NEGATIVE); BLOOD NEGATIVE (NEGATIVE); CLARITY SL CLOUDY (CLEAR); COLOR YELLOW (YELLOW); GLUCOSE NEGATIVE (NEGATIVE); KETONE NEGATIVE (NEGATIVE); LEUKO ESTERASE 1+ (NEGATIVE); NITRITE NEGATIVE (NEGATIVE); PH 5.5 (5.0-9.0); UROBILINOGEN 0.2 E.U./dl (0.2-1.0)
[2017-12-16 07:44] LABS: VITAMIN D, 25-HYDROXY 25.4 ng/mL (30-100)
[2017-12-16 09:37] LABS: BACTERIA 2+; WBC 21-30 wbc/hpf (0-5)
[2017-12-17] VITALS: BP 119/70
[2017-12-17 05:58] LABS: HEMATOCRIT 41.5 % (37.0-47.0); HEMOGLOBIN 13.4 g/dl (12.0-16.0); MEAN CELL VOLUME 89.8 fl (81.0-99.0); MEAN CORPUSCULAR HGB CONC 32.3 g/dl (33.0-37.0); PLATELET COUNT AUTOMATED 199 10*3/uL (130-400); RED BLOOD COUNT 4.62 10*6/uL (4.10-5.10); RED CELL DISTRI WIDTH 13.4 % (0-14.5); WHITE BLOOD COUNT 7.8 10*3/uL (4.8-10.8)
[2017-12-17 06:09] LABS: ALBUMIN 3.3 gm/dl (3.1-4.5); ALKALINE PHOSPHATASE 77 U/L (45-117); BUN 6 mg/dl (7-24); CHLORIDE 110 mmol/L (98-107); CREATININE 0.71 mg/dL (0.55-1.02); PHOSPHOROUS 3.8 mg/dL (2.5-4.9); POTASSIUM 4.1 mmol/L (3.5-5.1); SGOT/AST 11 IU/L (3-35); SGPT/ALT 17 U/L (12-78); SODIUM 143 mmol/L (136-145); TOTAL PROTEIN 6.2 gm/dL (6.4-8.2)
[2017-12-17 06:52] LABS: PLATELET SUFFICIENCY NORMAL (NORMAL); TOTAL CELLS COUNTED 100 #CELLS
[2017-12-17 08:00] VITALS: BP 120/62
[2017-12-17 12:00] VITALS: BP 122/68
[2017-12-17 16:36] VITALS: BP 108/65
[2017-12-17 18:03] LABS: ACID FAST SPEC PROCESSING Concentration (.)
[2017-12-17 20:00] VITALS: BP 133/61
[2017-12-18] VITALS: BP 100/62
[2017-12-18 07:28] LABS: HEMATOCRIT 39.9 % (37.0-47.0); HEMOGLOBIN 12.8 g/dl (12.0-16.0); MEAN CELL VOLUME 90.5 fl (81.0-99.0); MEAN CORPUSCULAR HGB CONC 32.1 g/dl (33.0-37.0); MEAN PLATELET VOLUME 10.7 fl (9.6-12.3); PLATELET COUNT AUTOMATED 187 10*3/uL (130-400); RED BLOOD COUNT 4.41 10*6/uL (4.10-5.10); WHITE BLOOD COUNT 14.1 10*3/uL (4.8-10.8)
[2017-12-18 07:54] LABS: ALBUMIN 3.4 gm/dl (3.1-4.5); ALKALINE PHOSPHATASE 79 U/L (45-117); BUN 9 mg/dl (7-24); CHLORIDE 110 mmol/L (98-107); CREATININE 0.85 mg/dL (0.55-1.02); POTASSIUM 4.4 mmol/L (3.5-5.1); SGOT/AST 9 IU/L (3-35); SGPT/ALT 17 U/L (12-78); SODIUM 143 mmol/L (136-145)
[2017-12-18 08:00] VITALS: BP 114/58
[2017-12-18 08:08] LABS: PLATELET SUFFICIENCY NORMAL (NORMAL); TOTAL CELLS COUNTED 100 #CELLS
[2017-12-18] MEDS ORDERED: DOXYCYCLINE100 M3 PO (11:07)
[2017-12-18] MEDS ORDERED: PREDNISONE10 MG PO (11:07)
== END 2017-12-18 11:29 | disposition home or self-care (01) | DRG 871 ==
LOC: ED 19:08 → 4E 20:37 → EDHOLD 20:37 → 4E 20:48
PROVIDERS: Internal Medicine; Internal Medicine Critical Care Medicine; Internal Medicine Nephrology; Physician Assistant
PROC: 0BC78ZZ Extirpation of Matter from Left Main Bronchus, Via Natural or Artificial Opening Endoscopic (ICD-10-PCS; principal; 2017-12-16)
PROC: 0BC28ZZ Extirpation of Matter from Carina, Via Natural or Artificial Opening Endoscopic (ICD-10-PCS; principal; 2017-12-16)
PROC: 0BC38ZZ Extirpation of Matter from Right Main Bronchus, Via Natural or Artificial Opening Endoscopic (ICD-10-PCS; principal; 2017-12-16)
PROC: 0BC48ZZ Extirpation of Matter from Right Upper Lobe Bronchus, Via Natural or Artificial Opening Endoscopic (ICD-10-PCS; principal; 2017-12-16)
PROC: 0BC88ZZ Extirpation of Matter from Left Upper Lobe Bronchus, Via Natural or Artificial Opening Endoscopic (ICD-10-PCS; principal; 2017-12-16)
PROC: 0BCB8ZZ Extirpation of Matter from Left Lower Lobe Bronchus, Via Natural or Artificial Opening Endoscopic (ICD-10-PCS; principal; 2017-12-16)
PROC: 0BC68ZZ Extirpation of Matter from Right Lower Lobe Bronchus, Via Natural or Artificial Opening Endoscopic (ICD-10-PCS; principal; 2017-12-16)
PROC: 0BC58ZZ Extirpation of Matter from Right Middle Lobe Bronchus, Via Natural or Artificial Opening Endoscopic (ICD-10-PCS; principal; 2017-12-16)
PROC: 0BC98ZZ Extirpation of Matter from Lingula Bronchus, Via Natural or Artificial Opening Endoscopic (ICD-10-PCS; principal; 2017-12-16)
PROC: 0BC18ZZ Extirpation of Matter from Trachea, Via Natural or Artificial Opening Endoscopic (ICD-10-PCS; principal; 2017-12-16)
DX: A41.9 Sepsis, unspecified organism (principal); J18.9 Pneumonia, unspecified organism; E43 Unspecified severe protein-calorie malnutrition; J96.11 Chronic respiratory failure with hypoxia; E87.8 Other disorders of electrolyte and fluid balance, not elsewhere classified; J44.1 Chronic obstructive pulmonary disease with (acute) exacerbation; J44.0 Chronic obstructive pulmonary disease with (acute) lower respiratory infection; Z68.1 Body mass index [BMI] 19.9 or less, adult; R73.9 Hyperglycemia, unspecified; F17.210 Nicotine dependence, cigarettes, uncomplicated; E55.9 Vitamin D deficiency, unspecified; E53.8 Deficiency of other specified B group vitamins; M19.90 Unspecified osteoarthritis, unspecified site; J20.9 Acute bronchitis, unspecified; K21.9 Gastro-esophageal reflux disease without esophagitis; B96.20 Unspecified Escherichia coli [E. coli] as the cause of diseases classified elsewhere; Z79.899 Other long term (current) drug therapy; Z90.710 Acquired absence of both cervix and uterus; Z98.1 Arthrodesis status; Z98.51 Tubal ligation status; Z78.9 Other specified health status; Z71.6 Tobacco abuse counseling; Z82.49 Family history of ischemic heart disease and other diseases of the circulatory system; Z83.6 Family history of other diseases of the respiratory system; Z84.89 Family history of other specified conditions; Z85.828 Personal history of other malignant neoplasm of skin

== ENCOUNTER → 2018-09-22 | Day surgery (SDC) | payer MEDICARE, MEDICAID ==
[~2018-09-22] VITALS: Ht 175.2 cm; Wt 44.0 kg
[~2018-09-22] MED LIST changes: +PERCOCET 10-321 EACH PO; +SYMB160 INH; -SYMBICORT1 AE1 IH
--- NOTE | ~2018-09-22 | PROC NOTE ---
[place], [place] PROCEDURE NOTE NAME: SEA SCHUSTER UNIT #: [id number] ROOM: DOCTOR: PRITESH MONTES MD,MARCIA BIRTHDATE: [birth year] DOS: 09/22/2018 PROCEDURE: Bronchoscopy. PREOPERATIVE DIAGNOSES: Persistent severe nonproductive cough with intermittent wheezing, maximum medical management. POSTOPERATIVE DIAGNOSES: Removal of moderate amount of mucus secretion from the endobronchial tree bilaterally. COMPLICATIONS: None. PROCEDURE DESCRIPTION: Informed consent obtained from the patient. The patient brought to the OR and placed in supine position. Conscious sedation was administered by the Anesthesia Department. After achieving proper sedation, airway introduced into the mouth. Bronchoscope advanced to the airway into laryngeal area. Epiglottis and vocal cords were seen. Vocal cords moving symmetrical with movements, yellowish in color. The bronchoscope entered vocal cord and tracheal lumen shows moderate amount of thick mucus secretion, which was suctioned out to the andrew level. Right upper, right middle, right lower, left upper, lingular lower lobe bronchi were all examined. All the secretions suctioned out, cleared with normal saline wash, sent for cultures. Procedure well tolerated by the patient without difficulty. Postoperative findings will be discussed with the patient once the patient recovers the effects of acute sedation. ____ scheduled to discuss the findings of the bronchial washing culture for next week. MARCIA JONAS MD CM:PROCNOTE:PROCEDURE NOTE [id number] MARCIA MONTES MD
[2018-09-22 07:59] VITALS: BP 125/56
[2018-09-22 08:42] VITALS: BP 101/69
[2018-09-22 08:55] VITALS: BP 112/66
[2018-09-22 09:10] VITALS: BP 116/68
[2018-09-23 17:05] LABS: ACID FAST SPEC PROCESSING Concentration (.)
[2018-11-03 09:10] LABS: ACID FAST CULTURE Negative (.)
== END | disposition home or self-care (01) ==
LOC: SDC 09-21 11:00
PROVIDERS: Internal Medicine Critical Care Medicine
DX: J40 Bronchitis, not specified as acute or chronic (principal); J98.09 Other diseases of bronchus, not elsewhere classified; J44.9 Chronic obstructive pulmonary disease, unspecified; K21.9 Gastro-esophageal reflux disease without esophagitis; M19.90 Unspecified osteoarthritis, unspecified site; Z98.890 Other specified postprocedural states; Z90.710 Acquired absence of both cervix and uterus; Z79.891 Long term (current) use of opiate analgesic; Z79.899 Other long term (current) drug therapy; Z82.49 Family history of ischemic heart disease and other diseases of the circulatory system

== ENCOUNTER → 2019-05-17 | Outpatient (CLI) | payer MEDICARE, MEDICAID ==
[2019-05-17 12:21] LABS: BASO # 0.1 10*3/uL (0.0-0.1); BASO % 1.2 % (0.0-1.0); EOS # 0.1 10*3/uL (0.0-0.4); EOS % 1.3 % (1.0-4.0); HEMATOCRIT 45.9 % (37.0-47.0); HEMOGLOBIN 14.3 g/dl (12.0-16.0); LYMPH # 1.9 10*3/uL (1.3-4.4); LYMPH % 27.4 % (27.0-41.0); MEAN CELL VOLUME 92.7 fl (81.0-99.0); MEAN CORPUSCULAR HGB 28.9 pg (27.0-31.0); MEAN CORPUSCULAR HGB CONC 31.2 g/dl (33.0-37.0); MEAN PLATELET VOLUME 10.3 fl (9.6-12.3); MONO # 0.5 10*3/uL (0.1-1.0); MONO % 7.4 % (3.0-9.0); NEUT # 4.3 10*3/uL (2.3-7.9); NEUT % 62.6 % (47.0-73.0); PLATELET COUNT AUTOMATED 223 10*3/uL (130-400); RED BLOOD COUNT 4.95 10*6/uL (4.10-5.10); RED CELL DISTRI WIDTH 13.2 % (0-14.5); WHITE BLOOD COUNT 6.8 10*3/uL (4.8-10.8)
== END | disposition home or self-care (01) ==
LOC: LAB 11:23
PROVIDERS: Family Medicine
DX: F17.200 Nicotine dependence, unspecified, uncomplicated (principal); J44.9 Chronic obstructive pulmonary disease, unspecified

== ENCOUNTER 2019-09-12 17:11 | Emergency (ER) | payer MEDICARE, MEDICAID ==
[~2019-09-12] VITALS: Ht 175.2 cm; Wt 45.4 kg
[2019-09-12] MEDS ORDERED: METHOCARBAMOL500 M1 PO (19:36)
[2019-09-12] MEDS ORDERED: IBU800 MG PO (19:36)
== END 2019-09-12 19:47 | disposition home or self-care (01) ==
LOC: ED 17:11
DX: M43.6 Torticollis (principal); J44.9 Chronic obstructive pulmonary disease, unspecified; K21.9 Gastro-esophageal reflux disease without esophagitis; M19.90 Unspecified osteoarthritis, unspecified site; Z79.899 Other long term (current) drug therapy; Z90.710 Acquired absence of both cervix and uterus

== ENCOUNTER 2021-01-01 20:00 | Emergency (ER) | payer MEDICARE, MEDICAID ==
[~2021-01-01 20:00] MED LIST changes: +IBU800 MG PO; +METHOCARBAMOL500 M1 PO
== END 2021-01-01 23:18 | disposition home or self-care (01) ==
LOC: ED 20:00
DX: R06.00 Dyspnea, unspecified (principal); J44.9 Chronic obstructive pulmonary disease, unspecified; Z79.899 Other long term (current) drug therapy; Z79.2 Long term (current) use of antibiotics; Z98.890 Other specified postprocedural states; Z90.711 Acquired absence of uterus with remaining cervical stump; Z98.51 Tubal ligation status

== ENCOUNTER 2022-12-20 18:26 | Inpatient (IN) | payer MEDICARE, MEDICAID ==
[~2022-12-20] VITALS: Ht 175.3 cm; Wt 39.1 kg
[~2022-12-20 18:26] MED LIST changes: +CYCLOBENZAPRINE10 MG PO; +MIRTAZAPINE30 M2 PO; +MUCUS RELIEF600 MG PO; +OMNICEF300 MG PO; +ONDANSETRON HYDR4 MG PO; +VIBRA-TAB100 MG PO; +ZITHROMAX500 MG PO
[2022-12-20 19:21] LABS: BASO # 0.1 10*3/uL (0.0-0.1); BASO % 0.8 % (0.0-1.0); EOS # 0.2 10*3/uL (0.0-0.4); EOS % 2.1 % (1.0-4.0); HEMATOCRIT 43.8 % (37.0-47.0); LYMPH # 1.6 10*3/uL (1.3-4.4); LYMPH % 17.9 % (27.0-41.0); MEAN CELL VOLUME 96.7 fl (81.0-99.0); MEAN CORPUSCULAR HGB 30.2 pg (27.0-31.0); MEAN CORPUSCULAR HGB CONC 31.3 g/dl (33.0-37.0); MEAN PLATELET VOLUME 9.7 fl (9.6-12.3); MONO # 0.6 10*3/uL (0.1-1.0); MONO % 6.7 % (3.0-9.0); NEUT # 6.3 10*3/uL (2.3-7.9); NEUT % 72.3 % (47.0-73.0); PLATELET COUNT AUTOMATED 251 10*3/uL (130-400); RED BLOOD COUNT 4.53 10*6/uL (4.10-5.10); RED CELL DISTRI WIDTH 13.3 % (0-14.5); WHITE BLOOD COUNT 8.7 10*3/uL (4.8-10.8)
[2022-12-20 19:51] LABS: ALKALINE PHOSPHATASE 83 U/L (46-116); BUN 6 mg/dl (9-23); CHLORIDE 102 mmol/L (98-107); POTASSIUM 4.5 mmol/L (3.4-5.1); TOTAL PROTEIN 6.3 gm/dL (6.0-8.0)
[2022-12-20 19:53] LABS: SGPT/ALT < 7 U/L (10-49)
[2022-12-20 19:54] LABS: ABG BASE EXCESS 2.5 mmol/L (-2.0-2.0); ARTERIAL BLOOD GAS PH 7.395 (7.35-7.45); ARTERIAL BLOOD GAS PO2 90.1 (80-90)
[2022-12-20 20:11] VITALS: BP 133/73
[2022-12-20 22:40] VITALS: BP 149/82
[2022-12-21 06:30] LABS: BASO % 0.5 % (0.0-1.0); HEMATOCRIT 39.4 % (37.0-47.0); LYMPH # 0.3 10*3/uL (1.3-4.4); LYMPH % 7.6 % (27.0-41.0); MEAN CELL VOLUME 96.6 fl (81.0-99.0); MEAN CORPUSCULAR HGB 30.1 pg (27.0-31.0); MEAN CORPUSCULAR HGB CONC 31.2 g/dl (33.0-37.0); MEAN PLATELET VOLUME 10.1 fl (9.6-12.3); MONO # 0.1 10*3/uL (0.1-1.0); MONO % 1.8 % (3.0-9.0); NEUT # 3.9 10*3/uL (2.3-7.9); NEUT % 89.6 % (47.0-73.0); PLATELET COUNT AUTOMATED 244 10*3/uL (130-400); RED BLOOD COUNT 4.08 10*6/uL (4.10-5.10); RED CELL DISTRI WIDTH 13.1 % (0-14.5); WHITE BLOOD COUNT 4.3 10*3/uL (4.8-10.8)
[2022-12-21 06:37] LABS: ALKALINE PHOSPHATASE 68 U/L (46-116); BUN 5 mg/dl (9-23); CHLORIDE 103 mmol/L (98-107); POTASSIUM 4.6 mmol/L (3.4-5.1); TOTAL PROTEIN 5.6 gm/dL (6.0-8.0)
[2022-12-21 06:49] LABS: SGPT/ALT < 7 U/L (10-49)
[2022-12-21 08:00] VITALS: BP 117/81
[2022-12-21 12:00] VITALS: BP 121/79
[2022-12-21 16:00] VITALS: BP 110/80
[2022-12-21 20:00] VITALS: BP 122/87
[2022-12-22] VITALS: BP 116/80
[2022-12-22 06:18] LABS: BASO % 0.1 % (0.0-1.0); HEMATOCRIT 37.9 % (37.0-47.0); LYMPH # 0.5 10*3/uL (1.3-4.4); LYMPH % 6.8 % (27.0-41.0); MEAN CELL VOLUME 98.4 fl (81.0-99.0); MEAN CORPUSCULAR HGB 30.1 pg (27.0-31.0); MEAN CORPUSCULAR HGB CONC 30.6 g/dl (33.0-37.0); MEAN PLATELET VOLUME 10.2 fl (9.6-12.3); MONO # 0.2 10*3/uL (0.1-1.0); MONO % 2.9 % (3.0-9.0); NEUT # 6.6 10*3/uL (2.3-7.9); NEUT % 89.9 % (47.0-73.0); PLATELET COUNT AUTOMATED 252 10*3/uL (130-400); RED BLOOD COUNT 3.85 10*6/uL (4.10-5.10); RED CELL DISTRI WIDTH 13.2 % (0-14.5); WHITE BLOOD COUNT 7.4 10*3/uL (4.8-10.8)
[2022-12-22 06:21] LABS: BUN 10 mg/dl (9-23); CHLORIDE 102 mmol/L (98-107); POTASSIUM 4.7 mmol/L (3.4-5.1)
[2022-12-22 08:00] VITALS: BP 114/75; BP 116/79
[2022-12-22 12:00] VITALS: BP 130/80
[2022-12-22 16:00] VITALS: BP 131/84
[2022-12-22 20:00] VITALS: BP 122/95
[2022-12-23] VITALS: BP 148/93
[2022-12-23 07:34] LABS: BUN 12 mg/dl (9-23); CHLORIDE 103 mmol/L (98-107); POTASSIUM 4.6 mmol/L (3.4-5.1)
[2022-12-23 08:00] VITALS: BP 157/94
[2022-12-23 12:00] VITALS: BP 148/97
[2022-12-23 16:00] VITALS: BP 144/97
[2022-12-23 20:00] VITALS: BP 133/80
[2022-12-24] VITALS: BP 150/88
[2022-12-24 06:57] LABS: BUN 13 mg/dl (9-23); CHLORIDE 103 mmol/L (98-107); POTASSIUM 4.2 mmol/L (3.4-5.1)
[2022-12-24 08:00] VITALS: BP 139/94
[2022-12-24 12:00] VITALS: BP 154/93
[2022-12-24 16:00] VITALS: BP 117/93
[2022-12-24 20:00] VITALS: BP 138/86
[2022-12-25] VITALS: BP 157/92
[2022-12-25 06:10] LABS: BUN 13 mg/dl (9-23); CHLORIDE 102 mmol/L (98-107); POTASSIUM 4.5 mmol/L (3.4-5.1)
[2022-12-25 06:22] LABS: BASO % 0.1 % (0.0-1.0); HEMATOCRIT 38.6 % (37.0-47.0); LYMPH # 0.6 10*3/uL (1.3-4.4); LYMPH % 7.7 % (27.0-41.0); MEAN CORPUSCULAR HGB 29.6 pg (27.0-31.0); MEAN CORPUSCULAR HGB CONC 30.8 g/dl (33.0-37.0); MEAN PLATELET VOLUME 10.3 fl (9.6-12.3); MONO # 0.3 10*3/uL (0.1-1.0); MONO % 4.4 % (3.0-9.0); NEUT # 6.5 10*3/uL (2.3-7.9); PLATELET COUNT AUTOMATED 285 10*3/uL (130-400); RED BLOOD COUNT 4.02 10*6/uL (4.10-5.10); RED CELL DISTRI WIDTH 12.9 % (0-14.5); WHITE BLOOD COUNT 7.5 10*3/uL (4.8-10.8)
[2022-12-25 08:00] VITALS: BP 172/82
[2022-12-25 12:00] VITALS: BP 163/90
[2022-12-25 16:00] VITALS: BP 147/82
[2022-12-25 20:00] VITALS: BP 137/74
[2022-12-26] VITALS: BP 141/81
[2022-12-26 06:06] LABS: BUN 13 mg/dl (9-23); CHLORIDE 102 mmol/L (98-107); POTASSIUM 5.4 mmol/L (3.4-5.1)
[2022-12-26 08:00] VITALS: BP 144/77
[2022-12-26 12:00] VITALS: BP 150/95
[2022-12-26 16:00] VITALS: BP 160/95
[2022-12-26 20:00] VITALS: BP 134/76
[2022-12-27] VITALS: BP 126/76
[2022-12-27 06:47] LABS: BUN 12 mg/dl (9-23); CHLORIDE 102 mmol/L (98-107); POTASSIUM 4.8 mmol/L (3.4-5.1)
[2022-12-27 08:00] VITALS: BP 161/94
[2022-12-27 12:00] VITALS: BP 154/93; BP 98/71
[2022-12-27 15:41] VITALS: BP 171/97
[2022-12-27 20:00] VITALS: BP 130/74
[2022-12-28] VITALS: BP 120/80
[2022-12-28 04:36] LABS: BASO % 0.1 % (0.0-1.0); HEMATOCRIT 34.9 % (37.0-47.0); LYMPH # 0.7 10*3/uL (1.3-4.4); LYMPH % 8.3 % (27.0-41.0); MEAN CELL VOLUME 95.1 fl (81.0-99.0); MEAN CORPUSCULAR HGB 30.2 pg (27.0-31.0); MEAN CORPUSCULAR HGB CONC 31.8 g/dl (33.0-37.0); MEAN PLATELET VOLUME 9.5 fl (9.6-12.3); MONO # 0.5 10*3/uL (0.1-1.0); MONO % 6.3 % (3.0-9.0); PLATELET COUNT AUTOMATED 261 10*3/uL (130-400); RED BLOOD COUNT 3.67 10*6/uL (4.10-5.10); RED CELL DISTRI WIDTH 13.2 % (0-14.5); WHITE BLOOD COUNT 8.3 10*3/uL (4.8-10.8)
[2022-12-28 05:23] LABS: ALKALINE PHOSPHATASE 52 U/L (46-116); BUN 11 mg/dl (9-23); CHLORIDE 103 mmol/L (98-107); POTASSIUM 4.6 mmol/L (3.4-5.1); SGPT/ALT 14 U/L (10-49); TOTAL PROTEIN 4.9 gm/dL (6.0-8.0)
[2022-12-28 08:00] VITALS: BP 127/79
[2022-12-28 12:00] VITALS: BP 147/77
[2022-12-28 16:00] VITALS: BP 144/70
[2022-12-28 20:00] VITALS: BP 133/74
[2022-12-29] VITALS (9 sets, daily range): BP systolic 126–172; BP diastolic 73–100
[2022-12-30] VITALS: BP 135/83
[2022-12-30 08:00] VITALS: BP 168/91
[2022-12-30 08:35] VITALS: BP 140/80
[2022-12-30 12:00] VITALS: BP 163/87
[2022-12-30 12:07] LABS: ACID FAST SPEC PROCESSING Concentration (.)
[2022-12-30 16:00] VITALS: BP 124/76
[2022-12-30 20:00] VITALS: BP 138/71
[2022-12-31] VITALS: BP 135/7; BP 135/77
[2022-12-31 08:00] VITALS: BP 127/67
[2022-12-31 12:00] VITALS: BP 147/73
[2022-12-31 16:00] VITALS: BP 128/79
[2022-12-31 20:00] VITALS: BP 147/86
[2023-01-01] VITALS: BP 142/82
[2023-01-01 08:00] VITALS: BP 142/69
[2023-01-01] MEDS ORDERED: LACTULOSE20 GM/30 M PO (08:16)
[2023-01-01] MEDS ORDERED: PREDNISONE10 MG PO (08:16)
== END 2023-01-01 09:20 | disposition home or self-care (01) | DRG 871 ==
LOC: ED 18:26 → EDHOLD 20:03 → 4E 20:03
PROVIDERS: Family Medicine; Internal Medicine Critical Care Medicine; Nurse Practitioner Family; Student in an Organized Health Care Education/Training Program; ADMIT Internal Medicine; ATTEND Internal Medicine
PROC: 5A09357 Assistance with Respiratory Ventilation, Less than 24 Consecutive Hours, Continuous Positive Airway Pressure (ICD-10-PCS; 2022-12-20)
PROC: 0BC28ZZ Extirpation of Matter from Carina, Via Natural or Artificial Opening Endoscopic (ICD-10-PCS; principal; 2022-12-29)
PROC: 0BC18ZZ Extirpation of Matter from Trachea, Via Natural or Artificial Opening Endoscopic (ICD-10-PCS; 2022-12-29)
PROC: 0BC98ZZ Extirpation of Matter from Lingula Bronchus, Via Natural or Artificial Opening Endoscopic (ICD-10-PCS; 2022-12-29)
PROC: 0BC48ZZ Extirpation of Matter from Right Upper Lobe Bronchus, Via Natural or Artificial Opening Endoscopic (ICD-10-PCS; 2022-12-29)
PROC: 0BC88ZZ Extirpation of Matter from Left Upper Lobe Bronchus, Via Natural or Artificial Opening Endoscopic (ICD-10-PCS; 2022-12-29)
PROC: 0BC58ZZ Extirpation of Matter from Right Middle Lobe Bronchus, Via Natural or Artificial Opening Endoscopic (ICD-10-PCS; 2022-12-29)
PROC: 0BC38ZZ Extirpation of Matter from Right Main Bronchus, Via Natural or Artificial Opening Endoscopic (ICD-10-PCS; 2022-12-29)
PROC: 0BC78ZZ Extirpation of Matter from Left Main Bronchus, Via Natural or Artificial Opening Endoscopic (ICD-10-PCS; 2022-12-29)
PROC: 0BC68ZZ Extirpation of Matter from Right Lower Lobe Bronchus, Via Natural or Artificial Opening Endoscopic (ICD-10-PCS; 2022-12-29)
PROC: 0BCB8ZZ Extirpation of Matter from Left Lower Lobe Bronchus, Via Natural or Artificial Opening Endoscopic (ICD-10-PCS; 2022-12-29)
DX: A41.9 Sepsis, unspecified organism (principal); J96.21 Acute and chronic respiratory failure with hypoxia; J96.22 Acute and chronic respiratory failure with hypercapnia; J44.1 Chronic obstructive pulmonary disease with (acute) exacerbation; E87.20 Acidosis, unspecified; J93.9 Pneumothorax, unspecified; T17.590A Other foreign object in bronchus causing asphyxiation, initial encounter; J44.0 Chronic obstructive pulmonary disease with (acute) lower respiratory infection; D80.1 Nonfamilial hypogammaglobulinemia; E46 Unspecified protein-calorie malnutrition; Z68.1 Body mass index [BMI] 19.9 or less, adult; K59.00 Constipation, unspecified; J20.9 Acute bronchitis, unspecified; F17.210 Nicotine dependence, cigarettes, uncomplicated; R65.20 Severe sepsis without septic shock; K21.9 Gastro-esophageal reflux disease without esophagitis; X58.XXXA Exposure to other specified factors, initial encounter; Y93.89 Activity, other specified; Y92.9 Unspecified place or not applicable; Y99.8 Other external cause status; Z82.49 Family history of ischemic heart disease and other diseases of the circulatory system; Z79.51 Long term (current) use of inhaled steroids; Z79.899 Other long term (current) drug therapy; Z79.1 Long term (current) use of non-steroidal anti-inflammatories (NSAID)

== ENCOUNTER 2023-01-06 09:16 | Inpatient (IN) | payer MEDICARE, MEDICAID ==
[2023-01-06] VITALS (16 sets, daily range): BP systolic 106–172; BP diastolic 76–101
[~2023-01-06] VITALS: Ht 157.4 cm; Wt 38.1 kg
[~2023-01-06 09:16] MED LIST changes: +LACTULOSE20 GM/30 M PO; +VENT7GM INH; -VENTOLIN H0.09 MG/AC INH
[2023-01-06 10:28] LABS: BASO # 0.1 10*3/uL (0.0-0.1); BASO % 0.3 % (0.0-1.0); EOS # 0.1 10*3/uL (0.0-0.4); EOS % 0.5 % (1.0-4.0); HEMATOCRIT 42.7 % (37.0-47.0); LYMPH # 1.5 10*3/uL (1.3-4.4); LYMPH % 10.6 % (27.0-41.0); MEAN CELL VOLUME 99.8 fl (81.0-99.0); MEAN CORPUSCULAR HGB 29.9 pg (27.0-31.0); MEAN PLATELET VOLUME 10.1 fl (9.6-12.3); MONO # 1.2 10*3/uL (0.1-1.0); MONO % 8.4 % (3.0-9.0); NEUT # 11.4 10*3/uL (2.3-7.9); NEUT % 79.6 % (47.0-73.0); PLATELET COUNT AUTOMATED 319 10*3/uL (130-400); RED BLOOD COUNT 4.28 10*6/uL (4.10-5.10); RED CELL DISTRI WIDTH 13.2 % (0-14.5); WHITE BLOOD COUNT 14.4 10*3/uL (4.8-10.8)
[2023-01-06 10:39] LABS: INTERNATIONAL NORM RATIO 0.9 (2.0-3.5)
[2023-01-06 10:51] LABS: ALKALINE PHOSPHATASE 74 U/L (46-116); BUN 11 mg/dl (9-23); CHLORIDE 99 mmol/L (98-107); POTASSIUM 3.9 mmol/L (3.4-5.1); SGPT/ALT 33 U/L (10-49); TOTAL PROTEIN 5.9 gm/dL (6.0-8.0)
[2023-01-06] MEDS ORDERED: PREDNISONE2.5 MG PO (12:54)
[2023-01-06 15:19] LABS: ABG BASE EXCESS 2.4 mmol/L (-2.0-2.0); ARTERIAL BLOOD GAS PH 7.429 (7.35-7.45); ARTERIAL BLOOD GAS PO2 91.9 (80-90)
[2023-01-07] VITALS (12 sets, daily range): BP systolic 84–139; BP diastolic 61–99
[2023-01-07] MEDS ORDERED: LACTULOSE10 GM/151 PO (02:21)
[2023-01-07 04:19] LABS: HEMATOCRIT 40.8 % (37.0-47.0); MEAN CORPUSCULAR HGB 30.1 pg (27.0-31.0); MEAN CORPUSCULAR HGB CONC 31.4 g/dl (33.0-37.0); MEAN PLATELET VOLUME 10.1 fl (9.6-12.3); PLATELET COUNT AUTOMATED 250 10*3/uL (130-400); RED BLOOD COUNT 4.25 10*6/uL (4.10-5.10); RED CELL DISTRI WIDTH 13.6 % (0-14.5); WHITE BLOOD COUNT 25.7 10*3/uL (4.8-10.8)
[2023-01-07 04:22] LABS: MANUAL DIFF REFLEX YES
[2023-01-07 04:44] LABS: PLATELET SUFFICIENCY NORMAL (NORMAL); TOTAL CELLS COUNTED 100 #CELLS
[2023-01-07 04:59] LABS: ALKALINE PHOSPHATASE 72 U/L (46-116); BUN 16 mg/dl (9-23); CHLORIDE 101 mmol/L (98-107); POTASSIUM 4.6 mmol/L (3.4-5.1); SGPT/ALT 24 U/L (10-49); TOTAL PROTEIN 6.1 gm/dL (6.0-8.0)
[2023-01-07 08:38] LABS: ABG BASE EXCESS 7.4 mmol/L (-2.0-2.0); ARTERIAL BLOOD GAS PH 7.461 (7.35-7.45); ARTERIAL BLOOD GAS PO2 120.5 (80-90)
[2023-01-08] VITALS (13 sets, daily range): BP systolic 93–113; BP diastolic 67–77
[2023-01-08 05:35] LABS: ALKALINE PHOSPHATASE 66 U/L (46-116); BUN 19 mg/dl (9-23); CHLORIDE 105 mmol/L (98-107); POTASSIUM 4.4 mmol/L (3.4-5.1); SGPT/ALT 21 U/L (10-49); TOTAL PROTEIN 5.7 gm/dL (6.0-8.0)
[2023-01-08 06:08] LABS: BASO % 0.1 % (0.0-1.0); HEMATOCRIT 37.6 % (37.0-47.0); LYMPH # 0.4 10*3/uL (1.3-4.4); LYMPH % 2.7 % (27.0-41.0); MEAN CELL VOLUME 94.9 fl (81.0-99.0); MEAN CORPUSCULAR HGB 30.1 pg (27.0-31.0); MEAN CORPUSCULAR HGB CONC 31.6 g/dl (33.0-37.0); MEAN PLATELET VOLUME 10.9 fl (9.6-12.3); MONO # 0.8 10*3/uL (0.1-1.0); MONO % 6.2 % (3.0-9.0); NEUT # 11.9 10*3/uL (2.3-7.9); NEUT % 89.3 % (47.0-73.0); PLATELET COUNT AUTOMATED 218 10*3/uL (130-400); RED BLOOD COUNT 3.96 10*6/uL (4.10-5.10); RED CELL DISTRI WIDTH 13.4 % (0-14.5); WHITE BLOOD COUNT 13.4 10*3/uL (4.8-10.8)
[2023-01-08 08:06] LABS: ABG BASE EXCESS 3.1 mmol/L (-2.0-2.0); ARTERIAL BLOOD GAS PH 7.46 (7.35-7.45); ARTERIAL BLOOD GAS PO2 91.9 (80-90)
[2023-01-08 14:47] LABS: ABG BASE EXCESS 2.1 mmol/L (-2.0-2.0); ARTERIAL BLOOD GAS PH 7.4 (7.35-7.45); ARTERIAL BLOOD GAS PO2 132.5 (80-90)
[2023-01-09] VITALS (12 sets, daily range): BP systolic 116–146; BP diastolic 76–94
[2023-01-09 06:03] LABS: HEMATOCRIT 34.6 % (37.0-47.0); MEAN CELL VOLUME 96.6 fl (81.0-99.0); MEAN CORPUSCULAR HGB 30.2 pg (27.0-31.0); MEAN CORPUSCULAR HGB CONC 31.2 g/dl (33.0-37.0); MEAN PLATELET VOLUME 10.6 fl (9.6-12.3); PLATELET COUNT AUTOMATED 225 10*3/uL (130-400); RED BLOOD COUNT 3.58 10*6/uL (4.10-5.10); RED CELL DISTRI WIDTH 13.2 % (0-14.5); WHITE BLOOD COUNT 11.8 10*3/uL (4.8-10.8)
[2023-01-09 06:04] LABS: MANUAL DIFF REFLEX YES
[2023-01-09 06:54] LABS: PLATELET SUFFICIENCY NORMAL (NORMAL); TOTAL CELLS COUNTED 100 #CELLS
[2023-01-09 07:42] LABS: BUN 20 mg/dl (9-23); CHLORIDE 104 mmol/L (98-107); POTASSIUM 4.6 mmol/L (3.4-5.1)
[2023-01-10] VITALS (12 sets, daily range): BP systolic 121–159; BP diastolic 78–101
[2023-01-11] VITALS (7 sets, daily range): BP systolic 105–144; BP diastolic 70–92
[2023-01-11 05:02] LABS: BUN 12 mg/dl (9-23); CHLORIDE 105 mmol/L (98-107); POTASSIUM 4.3 mmol/L (3.4-5.1)
[2023-01-11 06:31] LABS: HEMATOCRIT 34.3 % (37.0-47.0); LYMPH # 0.4 10*3/uL (1.3-4.4); LYMPH % 5.4 % (27.0-41.0); MEAN CELL VOLUME 94.8 fl (81.0-99.0); MEAN CORPUSCULAR HGB 30.1 pg (27.0-31.0); MEAN CORPUSCULAR HGB CONC 31.8 g/dl (33.0-37.0); MEAN PLATELET VOLUME 10.5 fl (9.6-12.3); MONO # 0.3 10*3/uL (0.1-1.0); MONO % 4.4 % (3.0-9.0); NEUT # 6.5 10*3/uL (2.3-7.9); NEUT % 89.6 % (47.0-73.0); PLATELET COUNT AUTOMATED 239 10*3/uL (130-400); RED BLOOD COUNT 3.62 10*6/uL (4.10-5.10); RED CELL DISTRI WIDTH 12.7 % (0-14.5); WHITE BLOOD COUNT 7.2 10*3/uL (4.8-10.8)
[2023-01-12] VITALS: BP 136/88
[2023-01-12 05:11] LABS: BUN 15 mg/dl (9-23); CHLORIDE 106 mmol/L (98-107); POTASSIUM 3.6 mmol/L (3.4-5.1)
[2023-01-12 06:09] LABS: EOS # 0.1 10*3/uL (0.0-0.4); EOS % 0.7 % (1.0-4.0); HEMATOCRIT 34.1 % (37.0-47.0); LYMPH # 1.5 10*3/uL (1.3-4.4); LYMPH % 16.5 % (27.0-41.0); MEAN CELL VOLUME 96.1 fl (81.0-99.0); MEAN CORPUSCULAR HGB 30.7 pg (27.0-31.0); MEAN PLATELET VOLUME 10.2 fl (9.6-12.3); MONO # 0.7 10*3/uL (0.1-1.0); MONO % 7.2 % (3.0-9.0); NEUT # 6.9 10*3/uL (2.3-7.9); NEUT % 75.2 % (47.0-73.0); PLATELET COUNT AUTOMATED 228 10*3/uL (130-400); RED BLOOD COUNT 3.55 10*6/uL (4.10-5.10); WHITE BLOOD COUNT 9.2 10*3/uL (4.8-10.8)
[2023-01-12 08:00] VITALS: BP 150/90
[2023-01-12 12:00] VITALS: BP 147/96
[2023-01-12 16:00] VITALS: BP 145/91
[2023-01-12 20:00] VITALS: BP 127/79
[2023-01-13] VITALS: BP 156/95
[2023-01-13 06:11] LABS: BASO % 0.2 % (0.0-1.0); EOS # 0.2 10*3/uL (0.0-0.4); EOS % 1.7 % (1.0-4.0); HEMATOCRIT 37.1 % (37.0-47.0); LYMPH # 1.7 10*3/uL (1.3-4.4); LYMPH % 18.2 % (27.0-41.0); MEAN CELL VOLUME 98.1 fl (81.0-99.0); MEAN CORPUSCULAR HGB 30.7 pg (27.0-31.0); MEAN CORPUSCULAR HGB CONC 31.3 g/dl (33.0-37.0); MEAN PLATELET VOLUME 9.9 fl (9.6-12.3); MONO # 0.6 10*3/uL (0.1-1.0); MONO % 6.8 % (3.0-9.0); NEUT # 6.6 10*3/uL (2.3-7.9); NEUT % 72.4 % (47.0-73.0); PLATELET COUNT AUTOMATED 258 10*3/uL (130-400); RED BLOOD COUNT 3.78 10*6/uL (4.10-5.10); RED CELL DISTRI WIDTH 13.1 % (0-14.5); WHITE BLOOD COUNT 9.1 10*3/uL (4.8-10.8)
[2023-01-13 06:19] LABS: BUN 15 mg/dl (9-23); CHLORIDE 105 mmol/L (98-107); POTASSIUM 3.7 mmol/L (3.4-5.1)
[2023-01-13 08:00] VITALS: BP 145/89
[2023-01-13 16:00] VITALS: BP 133/85
[2023-01-13 20:20] VITALS: BP 160/90
[2023-01-14 00:09] VITALS: BP 156/96
[2023-01-14 05:06] LABS: BUN 13 mg/dl (9-23); CHLORIDE 106 mmol/L (98-107); POTASSIUM 3.4 mmol/L (3.4-5.1)
[2023-01-14 06:07] LABS: EOS # 0.1 10*3/uL (0.0-0.4); EOS % 1.5 % (1.0-4.0); LYMPH # 1.3 10*3/uL (1.3-4.4); LYMPH % 15.1 % (27.0-41.0); MEAN CELL VOLUME 96.5 fl (81.0-99.0); MEAN CORPUSCULAR HGB 30.7 pg (27.0-31.0); MEAN CORPUSCULAR HGB CONC 31.8 g/dl (33.0-37.0); MEAN PLATELET VOLUME 10.1 fl (9.6-12.3); MONO # 0.6 10*3/uL (0.1-1.0); MONO % 7.1 % (3.0-9.0); NEUT # 6.3 10*3/uL (2.3-7.9); NEUT % 74.8 % (47.0-73.0); PLATELET COUNT AUTOMATED 246 10*3/uL (130-400); RED BLOOD COUNT 3.42 10*6/uL (4.10-5.10); RED CELL DISTRI WIDTH 13.1 % (0-14.5); WHITE BLOOD COUNT 8.4 10*3/uL (4.8-10.8)
[2023-01-14 08:00] VITALS: BP 136/85
[2023-01-14 16:00] VITALS: BP 138/86
[2023-01-14 20:07] VITALS: BP 131/89
[2023-01-15] VITALS: BP 133/97
[2023-01-15 05:57] LABS: BASO % 0.1 % (0.0-1.0); EOS # 0.1 10*3/uL (0.0-0.4); EOS % 1.2 % (1.0-4.0); HEMATOCRIT 33.5 % (37.0-47.0); LYMPH # 1.3 10*3/uL (1.3-4.4); LYMPH % 15.8 % (27.0-41.0); MEAN CELL VOLUME 94.6 fl (81.0-99.0); MEAN CORPUSCULAR HGB 30.5 pg (27.0-31.0); MEAN CORPUSCULAR HGB CONC 32.2 g/dl (33.0-37.0); MEAN PLATELET VOLUME 9.5 fl (9.6-12.3); MONO # 0.6 10*3/uL (0.1-1.0); MONO % 7.2 % (3.0-9.0); NEUT # 6.1 10*3/uL (2.3-7.9); NEUT % 75.3 % (47.0-73.0); PLATELET COUNT AUTOMATED 254 10*3/uL (130-400); RED BLOOD COUNT 3.54 10*6/uL (4.10-5.10); RED CELL DISTRI WIDTH 12.9 % (0-14.5); WHITE BLOOD COUNT 8.1 10*3/uL (4.8-10.8)
[2023-01-15 06:17] LABS: BUN 12 mg/dl (9-23); CHLORIDE 106 mmol/L (98-107); POTASSIUM 3.4 mmol/L (3.4-5.1)
[2023-01-15 08:00] VITALS: BP 146/94
[2023-01-15] MEDS ORDERED: PERCOCET 10-321 EACH PO ×2 (13:56)
[2023-01-15] MEDS ORDERED: Carafate1 GM PO (13:56)
[2023-01-15] MEDS ORDERED: PREDNISONE10 MG PO (13:56)
[2023-01-15] MEDS ORDERED: PANTOPRAZOLE SO40 MG PO (13:56)
[2023-01-23] MEDS ORDERED: CYCLOBENZAPRINE10 MG PO (10:48)
[2023-01-23] MEDS ORDERED: VENTOLIN 02.5 MG/3 M INH (10:48)
[2023-01-23] MEDS ORDERED: DOCUSATE SOD100 MG PO (10:48)
[2023-01-23] MEDS ORDERED: Carafate1 GM PO (10:48)
[2023-01-23] MEDS ORDERED: PERCOCET 10-321 EACH PO (10:49)
[2023-01-23] MEDS ORDERED: GENERLAC10 GM/15 M PO (10:49)
[2023-01-23] MEDS ORDERED: PREDNISONE20 M1 PO (10:50)
[2023-01-23] MEDS ORDERED: PROTONIX40 MG PO (10:51)
[2023-01-23] MEDS ORDERED: VENT7GM INH (10:51)
[2023-01-23] MEDS ORDERED: VITAMIN D3125 MC1 PO (10:52)
== END 2023-01-15 16:00 | DRG 871 ==
LOC: ED 09:16 → EDHOLD 12:56 → ICCU 12:56 → EDHOLD 12:57 → ICCU 13:25
PROVIDERS: Emergency Medicine; Internal Medicine; Internal Medicine Critical Care Medicine; Student in an Organized Health Care Education/Training Program; ADMIT Internal Medicine; ATTEND Internal Medicine
PROC: 5A1945Z Respiratory Ventilation, 24-96 Consecutive Hours (ICD-10-PCS; principal; 2023-01-06)
PROC: 0BH17EZ Insertion of Endotracheal Airway into Trachea, Via Natural or Artificial Opening (ICD-10-PCS; 2023-01-06)
PROC: 5A09357 Assistance with Respiratory Ventilation, Less than 24 Consecutive Hours, Continuous Positive Airway Pressure (ICD-10-PCS; 2023-01-06)
PROC: 0W9930Z Drainage of Right Pleural Cavity with Drainage Device, Percutaneous Approach (ICD-10-PCS; 2023-01-06)
DX: A41.9 Sepsis, unspecified organism (principal); J15.6 Pneumonia due to other Gram-negative bacteria; J96.21 Acute and chronic respiratory failure with hypoxia; E44.0 Moderate protein-calorie malnutrition; Z68.1 Body mass index [BMI] 19.9 or less, adult; J93.83 Other pneumothorax; R65.20 Severe sepsis without septic shock; F17.210 Nicotine dependence, cigarettes, uncomplicated; J20.9 Acute bronchitis, unspecified; J43.9 Emphysema, unspecified; D64.9 Anemia, unspecified; E83.41 Hypermagnesemia; R73.9 Hyperglycemia, unspecified; G89.29 Other chronic pain; Z98.51 Tubal ligation status; Z90.710 Acquired absence of both cervix and uterus; Z82.49 Family history of ischemic heart disease and other diseases of the circulatory system; Z79.51 Long term (current) use of inhaled steroids; Z79.899 Other long term (current) drug therapy; Z79.1 Long term (current) use of non-steroidal anti-inflammatories (NSAID)

== ENCOUNTER 2024-01-26 10:26 | Inpatient (IN) | payer MEDICARE, MEDICAID ==
[~2024-01-26] VITALS: Ht 175.2 cm; Wt 41.0 kg
[~2024-01-26 10:26] MED LIST changes: +Carafate1 GM PO; +DOCUSATE SOD100 MG PO; +DOXYCYCLINE HY100 M3 PO; +GENERLAC10 GM/15 M PO; +LACTULOSE10 GM/151 PO; +PANTOPRAZOLE SO40 MG PO; +PREDNISONE2.5 MG PO; +PREDNISONE20 M1 PO; +PROTONIX40 MG PO; +VENTOLIN 02.5 MG/3 M INH; +VITAMIN D3125 MC1 PO
[2024-01-26] MEDS ORDERED: Levalbuterol Hydrochloride 1.25 MG VIAL NEB ONE (10:30)
[2024-01-26 10:33] VITALS: BP 131/88
[2024-01-26 11:04] LABS: BASO # 0.1 10*3/uL (0.0-0.1); BASO % 1.3 % (0.0-1.0); EOS # 0.2 10*3/uL (0.0-0.4); EOS % 2.2 % (1.0-4.0); HEMATOCRIT 41.2 % (37.0-47.0); LYMPH # 1.4 10*3/uL (1.3-4.4); MEAN CELL VOLUME 95.4 fl (81.0-99.0); MEAN CORPUSCULAR HGB 29.6 pg (27.0-31.0); MEAN CORPUSCULAR HGB CONC 31.1 g/dl (33.0-37.0); MEAN PLATELET VOLUME 9.8 fl (9.6-12.3); MONO # 0.5 10*3/uL (0.1-1.0); MONO % 6.8 % (3.0-9.0); NEUT # 4.7 10*3/uL (2.3-7.9); NEUT % 68.6 % (47.0-73.0); PLATELET COUNT AUTOMATED 210 10*3/uL (130-400); RED BLOOD COUNT 4.32 10*6/uL (4.10-5.10); RED CELL DISTRI WIDTH 13.9 % (0-14.5); WHITE BLOOD COUNT 6.8 10*3/uL (4.8-10.8)
[2024-01-26 11:14] LABS: ACT PARTIAL THROMBO TIME 26.2 SECONDS (20.0-32.1)
[2024-01-26 11:26] LABS: ALKALINE PHOSPHATASE 76 U/L (46-116); BUN 6 mg/dl (9-23); CHLORIDE 102 mmol/L (98-107); POTASSIUM 4.7 mmol/L (3.4-5.1); TOTAL PROTEIN 6.2 gm/dL (6.0-8.0)
[2024-01-26 11:30] LABS: SGPT/ALT < 7 U/L (5-49)
[2024-01-26] MEDS ORDERED: SODIUM CHLORIDE 0.9% 1,000 ML IV ONE (11:40)
[2024-01-26 12:00] VITALS: BP 109/70
[2024-01-26] MEDS ORDERED: SODIUM CHLORIDE 0.9% 1,000 ML IV SCH (12:05)
[2024-01-26] MEDS ORDERED: Ceftriaxone Sodium 1 GM/10 ML SYR IV ONE (12:05)
[2024-01-26] MEDS ORDERED: AZITHROMYCIN 250 ML IV ONE (12:10)
[2024-01-26] MEDS ORDERED: Midazolam Hydrochloride 2 MG/2 ML VIAL IV ONE (12:25)
[2024-01-26] MEDS ORDERED: HEPARIN SODIUM 250 ML IV SCH (13:50)
[2024-01-26 14:30] VITALS: BP 112/78
[2024-01-26] MEDS ORDERED: Magnesium Hydroxide 30 ML UDC PO PRN (16:55)
[2024-01-26] MEDS ORDERED: MORPHINE Sulfate 2 MG/ML SYR IV PRN (16:55)
[2024-01-26] MEDS ORDERED: BISACODYL 10 MG SUPP R PRN (16:55)
[2024-01-26] MEDS ORDERED: Ondansetron Hydrochloride 4 MG/2 ML VIAL IV PRN (16:55)
[2024-01-26] MEDS ORDERED: Acetaminophen/Hydrocodone 5 MG/325 MG TABLET PO PRN (16:55)
[2024-01-26] MEDS ORDERED: BISACODYL 5 MG TAB PO PRN (16:55)
[2024-01-26] MEDS ORDERED: LORazepam 0.5 MG TAB PO PRN (17:05)
[2024-01-26 17:25] VITALS: BP 114/83
[2024-01-26 18:00] LABS: BILIRUBIN Negative (Negative); BLOOD 1+ (Negative); CLARITY Clear (Clear); COLOR Yellow (Yellow); GLUCOSE Negative (Negative); KETONE 2+ (Negative); LEUKO ESTERASE Negative (Negative); NITRITE Negative (Negative); PH 5.5 (4.5-8.0); SPECIFIC GRAVITY 1.025 (1.001-1.030)
[2024-01-26] MEDS ORDERED: methylPREDNISolone sod succ 40 MG VIAL IV SCH (18:00)
[2024-01-26] MEDS ORDERED: methylPREDNISolone sod succ 40 MG IV SCH (18:00)
[2024-01-26] MEDS ORDERED: SODIUM CHLORIDE 0.9% 100 ML BAG IV ONE ×2 (18:40→19:35)
[2024-01-26] MEDS ORDERED: IOHEXOL 350 MG/ML 100 ML VIAL IV ONE (18:40)
[2024-01-26 18:41] LABS: BACTERIA TRACE; MUCOUS 1+
[2024-01-26 20:00] VITALS: BP 136/60
[2024-01-27 02:10] VITALS: BP 130/77
[2024-01-27 03:43] LABS: HEMATOCRIT 38.4 % (37.0-47.0); LYMPH # 0.3 10*3/uL (1.3-4.4); LYMPH % 11.7 % (27.0-41.0); MEAN CELL VOLUME 93.4 fl (81.0-99.0); MEAN CORPUSCULAR HGB 29.4 pg (27.0-31.0); MEAN CORPUSCULAR HGB CONC 31.5 g/dl (33.0-37.0); MEAN PLATELET VOLUME 10.5 fl (9.6-12.3); MONO # 0.2 10*3/uL (0.1-1.0); MONO % 8.6 % (3.0-9.0); NEUT # 2.1 10*3/uL (2.3-7.9); NEUT % 79.7 % (47.0-73.0); PLATELET COUNT AUTOMATED 202 10*3/uL (130-400); RED BLOOD COUNT 4.11 10*6/uL (4.10-5.10); WHITE BLOOD COUNT 2.7 10*3/uL (4.8-10.8)
[2024-01-27 04:07] LABS: BUN 6 mg/dl (9-23); CHLORIDE 108 mmol/L (98-107); CHOLESTEROL 189 mg/dL (<200); LDL CHOLESTEROL 108 mg/dL (9-159); POTASSIUM 4.3 mmol/L (3.4-5.1); TRIGLYCERIDES 80 mg/dl (<150)
[2024-01-27] MEDS ORDERED: Pantoprazole Sodium 40 MG TAB PO SCH (06:00)
[2024-01-27 06:34] VITALS: BP 118/79
[2024-01-27] MEDS ORDERED: BENZONATATE 100 MG CAP PO PRN (08:40)
[2024-01-27 08:43] LABS: VITAMIN D, 25-HYDROXY 20.8 ng/mL (30-100)
[2024-01-27 08:51] VITALS: BP 114/80
[2024-01-27] MEDS ORDERED: Levalbuterol Hydrochloride 1.25 MG VIAL NEB PRN (09:15)
[2024-01-27] MEDS ORDERED: Albuterol Sulfate 2.5 MG/3 ML VIAL NEB SCH ×2 (09:40→15:45)
[2024-01-27] MEDS ORDERED: METOPROLOL SUCCINATE XR 25 MG TAB PO SCH (09:45)
[2024-01-27] MEDS ORDERED: Ceftriaxone Sodium 1 GM,IV 1 EA in SYRINGE INFUSION 10 ML IV SCH ×2 (10:00→20:00)
[2024-01-27] MEDS ORDERED: Vitamin D 1,000 IU TAB (25 MCG) PO SCH (10:00)
[2024-01-27] MEDS ORDERED: ATORVASTATIN CALCIUM 40 MG TABLET PO SCH (10:00)
[2024-01-27] MEDS ORDERED: ASPIRIN ENTERIC COATED 81 MG TAB PO SCH (10:00)
[2024-01-27] MEDS ORDERED: AZITHROMYCIN 250 ML IV SCH (12:00)
[2024-01-27 16:30] VITALS: BP 106/78
[2024-01-27 17:00] VITALS: BP 113/83
[2024-01-27 20:00] VITALS: BP 114/82
[2024-01-27] MEDS ORDERED: Cyclobenzaprine Hydrochlorid 10 MG TAB PO SCH (22:00)
[2024-01-27] MEDS ORDERED: SUCRALFATE 1 GM TAB PO SCH (22:00)
[2024-01-27] MEDS ORDERED: SACUBITRIL/VALSARTAN 24 MG-26 MG TABLET PO SCH (22:00)
[2024-01-28] VITALS: BP 117/77
[2024-01-28 06:11] LABS: BASO % 0.2 % (0.0-1.0); HEMATOCRIT 33.7 % (37.0-47.0); LYMPH # 0.6 10*3/uL (1.3-4.4); LYMPH % 10.2 % (27.0-41.0); MEAN CELL VOLUME 93.1 fl (81.0-99.0); MEAN CORPUSCULAR HGB 29.6 pg (27.0-31.0); MEAN CORPUSCULAR HGB CONC 31.8 g/dl (33.0-37.0); MEAN PLATELET VOLUME 10.4 fl (9.6-12.3); MONO # 0.4 10*3/uL (0.1-1.0); MONO % 6.5 % (3.0-9.0); NEUT # 4.6 10*3/uL (2.3-7.9); NEUT % 82.7 % (47.0-73.0); PLATELET COUNT AUTOMATED 205 10*3/uL (130-400); RED BLOOD COUNT 3.62 10*6/uL (4.10-5.10); WHITE BLOOD COUNT 5.5 10*3/uL (4.8-10.8)
[2024-01-28 06:38] LABS: BUN 9 mg/dl (9-23); CHLORIDE 107 mmol/L (98-107); POTASSIUM 4.2 mmol/L (3.4-5.1)
[2024-01-28 08:00] VITALS: BP 111/76
[2024-01-28 12:00] VITALS: BP 109/70
[2024-01-28] MEDS ORDERED: GUAIFENESIN 600 MG TAB ER PO SCH (14:15)
[2024-01-28 16:00] VITALS: BP 101/70
[2024-01-28 20:00] VITALS: BP 119/78
[2024-01-29] VITALS: BP 118/75
[2024-01-29 05:58] LABS: BUN 8 mg/dl (9-23); CHLORIDE 105 mmol/L (98-107); POTASSIUM 4.1 mmol/L (3.4-5.1)
[2024-01-29 07:35] LABS: BASO % 0.2 % (0.0-1.0); HEMATOCRIT 37.1 % (37.0-47.0); LYMPH # 0.9 10*3/uL (1.3-4.4); LYMPH % 12.9 % (27.0-41.0); MEAN CELL VOLUME 94.9 fl (81.0-99.0); MEAN CORPUSCULAR HGB 29.7 pg (27.0-31.0); MEAN CORPUSCULAR HGB CONC 31.3 g/dl (33.0-37.0); MEAN PLATELET VOLUME 10.8 fl (9.6-12.3); MONO # 0.5 10*3/uL (0.1-1.0); MONO % 7.1 % (3.0-9.0); NEUT # 5.2 10*3/uL (2.3-7.9); NEUT % 79.6 % (47.0-73.0); PLATELET COUNT AUTOMATED 205 10*3/uL (130-400); RED BLOOD COUNT 3.91 10*6/uL (4.10-5.10); RED CELL DISTRI WIDTH 13.9 % (0-14.5); WHITE BLOOD COUNT 6.6 10*3/uL (4.8-10.8)
[2024-01-29 08:00] VITALS: BP 115/80; BP 125/54
[2024-01-29] MEDS ORDERED: Enoxaparin Sodium 40 MG/0.4 ML SYR SC SCH (10:00)
[2024-01-29 12:00] VITALS: BP 108/73
[2024-01-29] MEDS ORDERED: Acetaminophen/Oxycodone 5 MG/325 MG TABLET PO PRN ×2 (15:45→21:34)
[2024-01-29 16:00] VITALS: BP 101/75
[2024-01-29 20:00] VITALS: BP 102/70
[2024-01-30] VITALS: BP 105/65
[2024-01-30 06:04] LABS: BUN 10 mg/dl (9-23); CHLORIDE 107 mmol/L (98-107); POTASSIUM 3.4 mmol/L (3.4-5.1)
[2024-01-30 06:25] LABS: HEMATOCRIT 37.6 % (37.0-47.0); LYMPH # 0.8 10*3/uL (1.3-4.4); LYMPH % 13.5 % (27.0-41.0); MEAN CELL VOLUME 95.4 fl (81.0-99.0); MEAN CORPUSCULAR HGB 29.4 pg (27.0-31.0); MEAN CORPUSCULAR HGB CONC 30.9 g/dl (33.0-37.0); MEAN PLATELET VOLUME 11.2 fl (9.6-12.3); MONO # 0.5 10*3/uL (0.1-1.0); MONO % 8.1 % (3.0-9.0); NEUT # 4.6 10*3/uL (2.3-7.9); NEUT % 78.1 % (47.0-73.0); PLATELET COUNT AUTOMATED 218 10*3/uL (130-400); RED BLOOD COUNT 3.94 10*6/uL (4.10-5.10); RED CELL DISTRI WIDTH 13.7 % (0-14.5); WHITE BLOOD COUNT 5.9 10*3/uL (4.8-10.8)
[2024-01-30 07:59] VITALS: BP 124/82
[2024-01-30] MEDS ORDERED: SPIRONOLACTONE 25 MG TAB PO SCH (10:00)
[2024-01-30] MEDS ORDERED: EMPAGLIFLOZIN 10 MG TABLET PO SCH (10:00)
[2024-01-30 12:00] VITALS: BP 95/58
[2024-01-30] MEDS ORDERED: METOPROLOL SUCC25 M2 PO (12:48)
[2024-01-30] MEDS ORDERED: ENTRESTO 24 MG1 EACH PO (12:48)
[2024-01-30] MEDS ORDERED: JARDIANCE10 MG PO (12:48)
[2024-01-30] MEDS ORDERED: ATORVASTATIN CA40 M1 PO (12:48)
[2024-01-30] MEDS ORDERED: VITAMIN D350 MC3 PO (12:48)
[2024-01-30] MEDS ORDERED: ASPIRIN ADULT L81 M2 PO (12:48)
[2024-01-30] MEDS ORDERED: ALDACTONE25 MG PO (12:48)
[2024-01-30 16:00] VITALS: BP 103/74
[2024-01-30 20:00] VITALS: BP 117/77
[2024-01-31] VITALS: BP 116/72
[2024-01-31 05:52] VITALS: BP 118/78
[2024-01-31 05:52] LABS: BUN 9 mg/dl (9-23); CHLORIDE 106 mmol/L (98-107); POTASSIUM 3.4 mmol/L (3.4-5.1)
[2024-01-31 06:26] LABS: HEMATOCRIT 38.5 % (37.0-47.0); LYMPH # 1.1 10*3/uL (1.3-4.4); LYMPH % 17.1 % (27.0-41.0); MEAN CELL VOLUME 96.3 fl (81.0-99.0); MEAN CORPUSCULAR HGB 29.5 pg (27.0-31.0); MEAN CORPUSCULAR HGB CONC 30.6 g/dl (33.0-37.0); MEAN PLATELET VOLUME 11.1 fl (9.6-12.3); MONO # 0.5 10*3/uL (0.1-1.0); MONO % 6.9 % (3.0-9.0); NEUT # 4.9 10*3/uL (2.3-7.9); NEUT % 75.5 % (47.0-73.0); PLATELET COUNT AUTOMATED 221 10*3/uL (130-400); RED CELL DISTRI WIDTH 13.9 % (0-14.5); WHITE BLOOD COUNT 6.5 10*3/uL (4.8-10.8)
[2024-01-31] MEDS ORDERED: PERCOCET 10-321 EACH PO (12:48)
[2024-01-31] MEDS ORDERED: VENT7GM INH (12:49)
[2024-01-31] MEDS ORDERED: CYCLOBENZAPRINE10 MG PO (12:49)
== END 2024-01-31 06:55 | disposition short-term general hospital (02) | DRG 871 ==
LOC: ED 10:26 → EDHOLD 14:08 → 4E 14:08 → EDHOLD 14:09 → 4E 01-27 15:57
PROVIDERS: Internal Medicine; Student in an Organized Health Care Education/Training Program; ADMIT Student in an Organized Health Care Education/Training Program; ATTEND Student in an Organized Health Care Education/Training Program
PROC: 5A09357 Assistance with Respiratory Ventilation, Less than 24 Consecutive Hours, Continuous Positive Airway Pressure (ICD-10-PCS; principal; 2024-01-26)
DX: A41.9 Sepsis, unspecified organism (principal); E43 Unspecified severe protein-calorie malnutrition; I21.4 Non-ST elevation (NSTEMI) myocardial infarction; J18.9 Pneumonia, unspecified organism; J96.21 Acute and chronic respiratory failure with hypoxia; E87.20 Acidosis, unspecified; J44.1 Chronic obstructive pulmonary disease with (acute) exacerbation; I50.22 Chronic systolic (congestive) heart failure; D80.1 Nonfamilial hypogammaglobulinemia; J44.0 Chronic obstructive pulmonary disease with (acute) lower respiratory infection; I42.9 Cardiomyopathy, unspecified; Z68.1 Body mass index [BMI] 19.9 or less, adult; R65.20 Severe sepsis without septic shock; R73.9 Hyperglycemia, unspecified; K21.9 Gastro-esophageal reflux disease without esophagitis; M19.90 Unspecified osteoarthritis, unspecified site; J30.9 Allergic rhinitis, unspecified; G89.29 Other chronic pain; J40 Bronchitis, not specified as acute or chronic; R62.7 Adult failure to thrive; Z79.899 Other long term (current) drug therapy; Z79.01 Long term (current) use of anticoagulants; Z79.2 Long term (current) use of antibiotics; Z90.710 Acquired absence of both cervix and uterus; Z87.891 Personal history of nicotine dependence; Z82.49 Family history of ischemic heart disease and other diseases of the circulatory system; Z82.5 Family history of asthma and other chronic lower respiratory diseases; Z99.81 Dependence on supplemental oxygen